=== PATIENT | female | born 1955 | race African-American/Black ===

== ENCOUNTER 2016-02-27 14:43 | Inpatient (IN) | payer OTHER ==
[~2016-02-27] VITALS: Ht 154.9 cm; Wt 73.9 kg
--- NOTE | ~2016-02-27 | EKG ---
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 : 1955 Requested By: Doni Luque Order Number: [id number] MD: Raheem Buckley Measurements Intervals [place] Rate: 57 P: 46 AR: 142 QRS: 40 QRSD: 104 T: -27 QT: 418 QTc: 407 Interpretive Statements Sinus rhythm Multiple premature complexes, supraven Abnormal R-wave progression, early transition Borderline T abnormalities, diffuse leads Compared to ECG 02/04/2016 17:42:54 T-wave abnormality now present Electronically Signed On 03-10-2016 14:19:23 AIRLINE STATION AGENT by Raheem Buckley [email or web address] <ELECTRONICALLY SIGNED> By: Raheem Buckley MD, FACC 03/10/16 1419 1244 1244 Raheem Buckley MD, [facility] /EPI
--- NOTE | ~2016-02-27 | HC ---
[facility] [place] [address] CONSULTATION Name: TIFFANIE TIMMONS Room #: 431-P ADM IN M.R.#: [id number] Admission: 02/27/16 Attend Phys: Chester [facility] Discharge: Date of : 51 Report #: [id number] THIS REPORT FOR: //name// CC: Chester Meza DATE OF SERVICE: 02/28/2016 ATTENDING PHYSICIAN: Chester Meza MD REASON FOR CONSULTATION: Sinus tract right groin. HISTORY OF PRESENT ILLNESS: A 60-year-old -[place] woman well known to me from multiple previous hospitalizations at [facility] in followup in the office. The patient apparently developed a draining sinus tract in the right groin with foul smelling material that she initially responded to Bactrim but subsequently failed to further improve. The patient is known to have this chronic sinus tract in the groin for many years. She was previously evaluated on multiple occasions by vascular surgeons. She did have previous fistulogram that revealed the sinus tract communicated with a graft. It appears that the graft was removed at some point in time. The patient ____ only drainage but no systemic symptoms. No nausea, vomiting, diarrhea, genitourinary symptoms. PAST MEDICAL HISTORY: Hypertension, history of abdominal aortic aneurysm graft infection, left BKA, chronic right sinus tract that appears to have been well controlled for many years and started draining again 4 weeks ago, history of ureteral stricture requiring stent placement by Dr. Frances, gastroesophageal reflux, hypertension, diabetes mellitus. DRUG ALLERGIES: None listed. MEDICATIONS: The patient on treatment with metformin 500 p.o. b.i.d., clopidogrel bisulfate 75 mg p.o. daily, vancomycin 750 mg IV every 12 hours, losartan 100 mg daily, polyethylene glycol 17 grams daily, nebivolol 10 mg daily, gabapentin 600 mg p.o. t.i.d., hydrochlorothiazide 25 mg p.o. daily, morphine controlled release 90 mg b.i.d., famotidine 10 mg b.i.d., fentanyl 50 mcg q.3 hours p.r.n., ondansetron 4 mg q.6 hours p.r.n., Zosyn 3.375 grams IV every 8 hours. 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 No tobacco. No alcohol. REVIEW OF SYSTEMS: As above. PHYSICAL EXAMINATION: GENERAL: Chronically ill-appearing woman, not toxic looking, no distress, [address] [address] CONSULTATION Name: TIFFANIE TIMMONS GRAHAM Room #: 431-[facility] IN [facility].#: [id number] Admission: 02/27/16 Attend Phys: Chester Meza MD, FAAF Discharge: Date of : 51 Report #: [id number] afebrile since admission. VITAL SIGNS: Temperature 98, pulse 77, respirations 17, BP 148/64, height 5 feet 1 inch, weight 163 pounds. HEENMT: Within range. NECK: Supple, no thyromegaly. LUNGS: Clear to auscultation. HEART: S1, S2. No gallop or murmur. ABDOMEN: Surgical scar, soft, no masses or megaly. EXTREMITIES: The right groin shows a chronic scarring and a small sinus tract no drainage on the dressing. She is scheduled for CT scanning of ____ fistulogram. She has left BKA. NEUROLOGIC: Grossly within normal limits. LABORATORY DATA: Sodium 135, potassium 4.2, BUN 11, creatinine 1.1, glucose 130, lactic acid 2.2, albumin 3.1. WBC 9.4, hemoglobin 12.1, platelets 410,000. White blood cell count differential revealed 63% neutrophils, 25% lymphocytes. Urinalysis revealed this to be cloudy with a specific gravity of 1.015, pH 6, 2+ blood. The microscopic exam revealed there is 3+ leukocyte esterase. Microscopic exam revealed a few wbc's in clumps, 11 to 20 rbc's per HPF, and moderate bacteria. Yeasts are present as well. MICROBIOLOGY DATA: Blood cultures were obtained in an afebrile patient with normal white blood cell count ____ will be negative. The urine culture is pending. The groin culture revealed no growth so far and the Gram stain revealed few wbc's, many rbc's, few squamous epithelial cells, moderate gram-negative rods, many gram-positive cocci. Note is made that the patient had previous Enterococcus faecalis and Tova albicans in urine. The groin culture and aortic graft revealed Streptococcus constellatus before. ASSESSMENT: 1. Recurrent right groin sinus tract in a patient with previous graft infection with Streptococcus constellatus status post graft removal. 2. Diabetes mellitus. 3. Single kidney, history of renal cell carcinoma. 4. Diabetes mellitus. SUGGESTIONS: Recommend Zosyn and vancomycin for coverage of previously isolated organisms. The patient has no symptoms of acute urinary tract infection, consequently will not ____ urinary tract, but we will keep that in mind since the patient had previous ureteral stent placement by Dr. Daniels. Dr. Meza, thank you for requesting my suggestions. <ELECTRONICALLY SIGNED> By: Ian Elkins MD 02/29/16 1149 1041 2115 Ian Elkins MD /heather
--- NOTE | ~2016-02-27 | H ---
[facility] [place] [address] HISTORY AND PHYSICAL Name: TIFFANIE TIMMONS Room #: 431-P ADM IN M.R.#: [id number] Admission: 02/27/16 Attend Phys: Chester Meza MD, FAAF Discharge: Date of : 51 Report #: [id number] THIS REPORT FOR: //name// CC: Augustus Ta MD DATE OF SERVICE: 02/27/2016 CHIEF COMPLAINT: Draining fistula, right groin. HISTORY OF PRESENT ILLNESS: The patient is a 60-year-old black female well known to me. She has a history of peripheral vascular disease and has had multiple surgical interventions to help her with that. She had an AAA graft with 3 bypasses and graft material removed from an infection with MRSA in 2002. Again, similar episode with graft with infection removed in 2011. She now presents with about 1 month long evolution of fistulous tract in the right groin, initially responded to Bactrim about Thanksgiving and then recurred, now worsened with a foul odor. She is evaluated in my office and then subsequently in the Emergency Department at [facility]. Cultures were obtained. Initial labs were also obtained. She started on IV Zosyn and further studies have been arranged to better evaluate her fistulous tract. She did have a pelvic ultrasound done immediately prior to her Emergency Department evaluation that showed a draining sinus tract with radiologist recommended further radiographic studies to better characterize this. PAST MEDICAL HISTORY: Peripheral vascular disease, left BKA, AAA graft with 3 bypasses graft material removed from infection with MRSA in 2002, dysfunctional graft infection removed in 2011, hypertension, gastroesophageal reflux, type 2 diabetes, tubal ligation in the at [facility], hysterectomy in 2002 at [facility], cholecystectomy in 1989, Raymundo ureteral stents with multiple changes about every [address] Augustus Daniels, urologist, renal cell carcinoma with nephrectomy. CURRENT MEDICATIONS: Hydrochlorothiazide 25 mg 1 p.o. q.a.m., Neurontin 600 mg p.o. t.i.d., Avapro 80 mg p.o. daily, Bystolic 10 mg p.o. daily, MiraLax 17 grams p.o. daily p.r.n., Percocet 7.5/325 mg one p.o. q. 4 hours p.r.n. pain, Glucophage 500 mg b.i.d. with meals, MS Contin 100 mg p.o. b.i.d., Zantac 150 mg b.i.d., and Plavix 75 mg p.o. q.a.m. ALLERGIES: LORAZEPAM. FAMILY HISTORY: Negative for colon cancer. 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 [address] [address] HISTORY AND PHYSICAL Name: TIFFANIE TIMMONS GRAHAM Room #: 431-P ADM IN M.R.#: [id number] Admission: 02/27/16 Attend Phys: Chester Meza MD, FAAF Discharge: Date of : 51 Report #: [id number] REVIEW OF SYSTEMS: GENERAL: She has felt poorly, feels malaise and fatigue. She has pelvic pain, flank pain and leg pain. EYES: No visual changes. ENT: No problems with hearing, swallow, taste or smell. CV: No chest pain or palpitations. RESPIRATORY: No difficulty breathing. GASTROINTESTINAL: No abdominal pain. She has some chronic pelvic pain, malaise and a draining right groin fistulous tract. GENITOURINARY: Single kidney with history of renal cell carcinoma and nephrectomy, now with single kidney. DERMATOLOGIC: Fistulous tract, right groin. PSYCHIATRIC: Frustrated, not depressed. NEUROLOGIC: No paresis, paralysis or paresthesias. Remainder of system review is negative. OBJECTIVE: VITAL SIGNS: Afebrile, stable. Appears fatigued. HEENT: Pupils equal, round and reactive to light and accommodation. Extraocular muscles intact. Pharynx unremarkable. NECK: Supple. CARDIOVASCULAR: S1, S2. CHEST: Clear. ABDOMEN: Soft, nontender. He has fistulous tract about 1 cm about the right groin crease. NEUROLOGIC: No focal neurologic deficits. LABORATORY DATA: Labs are drawn. CBC unable to be obtained. Creatinine 1.1. Cultures are taken from wound as well as blood. ASSESSMENT: Infected right groin with fistulous tract from prior peripheral vascular surgeries, chronic pelvic pain, single kidney with history of renal cell carcinoma, type 2 diabetes, hypertension, BKA status. PLAN: Admit to hospital, IV antibiotics. Follow cultures. Further imaging studies in a.m. We will hold Glucophage following her procedures and hold Plavix with chance of surgical or procedural intervention soon. <ELECTRONICALLY SIGNED> By: Chester Meza MD, FAAFP, FACEP 03/02/16 1413 0100 0150 Chester Meza MD, FAAFP, FACEP /nt
[~2016-02-27 14:43] MED LIST: AMITRIPTYLINE H25 M2 PO; AMOXICILLIN875 MG PO; AMOXIL 875 MG875 M1 PO; ANTIVERT25 MG PO; AUGMENTIN 875875 M1 PO; AVAPRO300 MG PO; BACTRIM DS TAB1 EACH PO; BENICAR20 MG PO; BENICAR40 MG PO; BLOOD GLUCOSE1 EAC5; BYSTOLIC 5 MG5 M1 PO; BYSTOLIC10 MG PO; BYSTOLIC20 MG PO; CEFTIN 250 MG250 MG PO; CIPRO500 MG/5 M PO; CIPROFLOXACIN500 M1 PO; CIPROFLOXACIN500 M3 OR; CLONIDINE PO; COUMADIN 4 MG TA4 M1 PO; DITROPAN XL5 M1 PO; EFFEXOR75 MG PO; ELAVIL PO; ENDOCET 7.5-321 EACH PO; ENOXAPARIN60 MG/0.6 IJ; FAMOTIDINE 40 M40 M1 PO; FERRO-TIME325 MG PO; FIORICET 50-321 EACH PO; GLUCOPHAGE500 MG PO; HUMULINR100; HYDROCHLOROTHIA25 M1 PO; HYDROCODON-ACE1 EAC5 PO; KEFLEX500 MG PO; LASIX 20 MG TAB20 MG PO; MACROBID 100 M100 M1 PO; METFORMIN 500500 MG PO; METROGEL-VAGINA70 GM VG; MIRALAX255 GM PO; MS CONTIN100 MG PO; NAPROSYN500 MG PO; NEURONTIN 300300 M1 PO; NEURONTIN600 MG PO; NEXIUM40 MG PO; NORCO 5-325 TA1 EACH PO; NORFLEX100 MG PO; NORVASC10 MG PO; OXYBUTYNIN 5 MG5 M1 PO; OXYCONTIN60 MG PO; PERCOCET 10-321 EACH PO; PERCOCET 5-3251 EACH PO; PERCOCET 7.5-31 EACH PO; PHENERGAN 25 MG25 M1; PHENERGAN 25 MG25 M1 PO; PHENERGAN 25 MG25 MG PO; PLAVIX 75 MG TA75 MG PO; PRILOSEC PO; PYRIDIUM200 MG PO; RANITIDINE; REGLAN 10 MG TA10 MG PO; RESTORIL15 MG PO; SENNA PLUS PO; TEKTURNA300 MG PO; VANCOCIN 250 M250 M1 PO; VANCOMYCIN100 MG/M1 PO; VESICARE 5 MG TA5 MG PO; VITAMIN D2000 UNIT PO; VITAMIN D31000 UNI2 PO; ZANTAC 150MG T150 M1 PO; ZANTAC 150MG T150 MG PO; ZANTAC300 MG PO; ZOFRAN ODT4 MG PO; ZOFRAN4 MG PO
[2016-02-27 14:44] VITALS: BP 193/90
[2016-02-27 16:13] LABS: URINE BILIRUBIN NEGATIVE (Negative); URINE BLOOD 2+ (Negative); URINE COLOR YELLOW; URINE GLUCOSE-RANDOM* NEGATIVE (Negative); URINE KETONES NEGATIVE (Negative); URINE NITRITE NEGATIVE (Negative); URINE PROTEIN (DIPSTICK) NEGATIVE (Negative); URINE SPECIFIC GRAVITY 1.015 (1.003-1.035); URINE UROBILINOGEN 0.2 E.U./dl (0.2-1.0)
[2016-02-27 16:21] LABS: CASTS None Seen /LPF (None Seen); SQUAMOUS >10 Many /LPF (0-3); URINE WBC >25 Many /HPF (0-5)
[2016-02-27 16:22] LABS: CRYSTALS None Seen /LPF (None Seen); WBC CLUMPS Few (None Seen); YEAST Present (None Seen)
[2016-02-27 16:26] LABS: ANION GAP 8 mmol/L (7-16); BUN 11 mg/dL (7-18); CALCIUM 9.7 mg/dL (8.5-10.1); CHLORIDE 99 mmol/L (98-107); CO2 28 mmol/L (21-32); CREATININE 1.1 mg/dL (0.6-1.3); GLUCOSE 121 mg/dL (70-99); POTASSIUM 4.2 mmol/L (3.5-5.1); SODIUM 135 mmol/L (136-145)
[2016-02-27 16:32] LABS: ALBUMIN 3.1 g/dL (3.4-5.0); ALKALINE PHOSPHATASE 120 U/L (46-116); DIRECT BILIRUBIN < 0.1 mg/dL (<0.1-0.3); SGOT 23 U/L (15-37); SGPT 17 U/L (30-65); TOTAL BILIRUBIN 0.3 mg/dL (<0.1-1.0)
[2016-02-27 18:01] VITALS: BP 168/85
[2016-02-27 18:30] VITALS: BP 157/78
[2016-02-27 19:37] LABS: BASOPHILS 0.9 % (0.0-2.0); EOSINOPHILS 1.3 % (0.0-3.0); HEMATOCRIT 36.6 % (37.0-47.0); HEMOGLOBIN 12.1 gm/dL (12.0-15.0); LYMPHOCYTES 25.4 % (24.0-44.0); MANUAL DIFF NO; MCH 28.9 pg (26.0-34.0); MCHC 33.2 % (28.0-37.0); MCV 87.1 fL (80.0-100.0); MONOCYTES 8.5 % (1.0-8.0); PLATELET COUNT 410 thou/uL (150-400); POLYS 63.9 % (36.0-66.0); RDW 14.7 % (10.5-14.5); WBC 9.4 thou/uL (4.0-11.0)
[2016-02-27 20:00] VITALS: BP 170/74
[2016-02-28 04:13] VITALS: BP 142/59
[2016-02-28 07:23] VITALS: BP 148/64
[2016-02-28 16:16] VITALS: BP 164/73
[2016-02-28 20:00] VITALS: BP 150/65
[2016-02-29 04:00] VITALS: BP 162/77
[2016-02-29 08:47] VITALS: BP 167/67
[2016-02-29 15:02] VITALS: BP 179/80
[2016-02-29 20:00] VITALS: BP 149/74
[2016-03-01 04:00] VITALS: BP 169/86
[2016-03-01 07:29] VITALS: BP 195/76
[2016-03-01 15:42] VITALS: BP 183/77
[2016-03-01 15:51] VITALS: BP 183/77
[2016-03-01 17:10] VITALS: BP 180/85
[2016-03-01 20:00] VITALS: BP 170/68
[2016-03-02 03:01] VITALS: BP 177/80
[2016-03-02 04:00] VITALS: BP 171/90
[2016-03-02 05:41] LABS: BASOPHILS 0.7 % (0.0-2.0); EOSINOPHILS 2.7 % (0.0-3.0); HEMATOCRIT 30.2 % (37.0-47.0); HEMOGLOBIN 10.3 gm/dL (12.0-15.0); LYMPHOCYTES 29.7 % (24.0-44.0); MCH 29.6 pg (26.0-34.0); MCV 87.1 fL (80.0-100.0); MONOCYTES 7.4 % (1.0-8.0); PLATELET COUNT 305 thou/uL (150-400); POLYS 59.5 % (36.0-66.0); RBC 3.46 mil/uL (4.20-5.00); RDW 14.5 % (10.5-14.5)
[2016-03-02 05:46] LABS: MANUAL DIFF NO
[2016-03-02 05:56] LABS: ALBUMIN 2.5 g/dL (3.4-5.0); CALCIUM 8.4 mg/dL (8.5-10.1); POTASSIUM 3.3 mmol/L (3.5-5.1); TOTAL BILIRUBIN 0.2 mg/dL (<0.1-1.0); TOTAL PROTEIN 6.5 g/dL (6.4-8.2)
[2016-03-02 08:29] VITALS: BP 160/73
[2016-03-02 17:23] VITALS: BP 203/80
[2016-03-03 04:00] VITALS: BP 204/80
[2016-03-03 07:40] VITALS: BP 179/64
[2016-03-03 08:10] VITALS: BP 182/72
[2016-03-03 12:03] VITALS: BP 181/82
[2016-03-03 17:16] VITALS: BP 132/67
[2016-03-03 20:00] VITALS: BP 190/68
[2016-03-04] VITALS: BP 190/59
[2016-03-04 04:00] VITALS: BP 178/70
[2016-03-04 15:50] VITALS: BP 178/85
[2016-03-04 19:19] VITALS: BP 188/79
[2016-03-05 03:09] VITALS: BP 149/73
[2016-03-05 05:51] LABS: ALBUMIN 2.7 g/dL (3.4-5.0); CALCIUM 9.2 mg/dL (8.5-10.1); CREATININE 1.1 mg/dL (0.6-1.3); POTASSIUM 3.5 mmol/L (3.5-5.1); TOTAL BILIRUBIN 0.3 mg/dL (<0.1-1.0); TOTAL PROTEIN 7.3 g/dL (6.4-8.2)
[2016-03-05 06:28] LABS: ABSOLUTE NEUTROPHILS 7.3 thou/uL (1.4-8.2); BASOPHILS 0.8 % (0.0-2.0); EOSINOPHILS 2.5 % (0.0-3.0); HEMATOCRIT 32.3 % (37.0-47.0); HEMOGLOBIN 10.9 gm/dL (12.0-15.0); LYMPHOCYTES 26.1 % (24.0-44.0); MCHC 33.8 % (28.0-37.0); MCV 85.7 fL (80.0-100.0); PLATELET COUNT 351 thou/uL (150-400); POLYS 64.6 % (36.0-66.0); RBC 3.77 mil/uL (4.20-5.00); RDW 14.8 % (10.5-14.5); WBC 11.3 thou/uL (4.0-11.0)
[2016-03-05 06:29] LABS: MANUAL DIFF NO
[2016-03-05 07:43] VITALS: BP 154/74
[2016-03-05 15:35] VITALS: BP 136/64
[2016-03-05 21:00] VITALS: BP 150/56
[2016-03-06 04:30] VITALS: BP 140/77
[2016-03-06 07:55] VITALS: BP 101/48
[2016-03-06 14:06] VITALS: BP 112/56
[2016-03-06 19:58] VITALS: BP 127/61
[2016-03-07 04:11] VITALS: BP 158/69
[2016-03-07 08:30] VITALS: BP 97/42
[2016-03-07 11:52] VITALS: BP 115/54
[2016-03-07 17:19] VITALS: BP 156/68
[2016-03-07 20:00] VITALS: BP 133/58
[2016-03-07 23:42] LABS: URINE BILIRUBIN NEGATIVE (Negative); URINE BLOOD 3+ (Negative); URINE COLOR YELLOW; URINE GLUCOSE-RANDOM* NEGATIVE (Negative); URINE KETONES NEGATIVE (Negative); URINE LEUKOCYTES-REFLEX 2+ (Negative); URINE PROTEIN (DIPSTICK) NEGATIVE (Negative); URINE UROBILINOGEN 0.2 E.U./dl (0.2-1.0)
[2016-03-08 00:04] LABS: CASTS None Seen /LPF (None Seen); CRYSTALS None Seen /LPF (None Seen); SQUAMOUS >10 Many /LPF (0-3); URINE RBC 3-10 Few /HPF (0-2)
[2016-03-08 04:00] VITALS: BP 140/62
[2016-03-08 07:43] VITALS: BP 118/68
[2016-03-08 11:53] VITALS: BP 183/77
[2016-03-08 14:34] VITALS: BP 183/77
[2016-03-08 16:05] VITALS: BP 136/59
[2016-03-08 20:00] VITALS: BP 166/74
[2016-03-09 04:08] VITALS: BP 132/69
[2016-03-09 08:15] VITALS: BP 126/50
[2016-03-09 11:42] VITALS: BP 112/55
[2016-03-09 15:58] VITALS: BP 126/63
[2016-03-09 20:00] VITALS: BP 129/44
[2016-03-10 04:00] VITALS: BP 131/58
[2016-03-10 08:13] VITALS: BP 99/53
[2016-03-10 09:52] LABS: CALCIUM 9.1 mg/dL (8.5-10.1); CREATININE 1.2 mg/dL (0.6-1.3); POTASSIUM 3.6 mmol/L (3.5-5.1)
[2016-03-10 10:05] LABS: ABSOLUTE NEUTROPHILS 9.4 thou/uL (1.4-8.2); BASOPHILS 0.6 % (0.0-2.0); EOSINOPHILS 2.5 % (0.0-3.0); HEMATOCRIT 33.1 % (37.0-47.0); HEMOGLOBIN 10.7 gm/dL (12.0-15.0); MANUAL DIFF NO; MCH 28.6 pg (26.0-34.0); MCHC 32.4 % (28.0-37.0); MCV 88.3 fL (80.0-100.0); MONOCYTES 6.8 % (1.0-8.0); POLYS 61.1 % (36.0-66.0); RBC 3.74 mil/uL (4.20-5.00); RDW 15.1 % (10.5-14.5); WBC 15.4 thou/uL (4.0-11.0)
[2016-03-10 10:29] LABS: PLATELET COUNT 333 thou/uL (150-400)
[2016-03-10 12:06] VITALS: BP 111/66
[2016-03-10 17:23] VITALS: BP 136/70
[2016-03-10 20:00] VITALS: BP 159/84
[2016-03-11 04:00] VITALS: BP 134/76
[2016-03-11 07:28] VITALS: BP 141/69
[2016-03-11 15:49] VITALS: BP 143/63
[2016-03-11 20:00] VITALS: BP 165/75
[2016-03-12 04:00] VITALS: BP 96/47
[2016-03-12 07:14] VITALS: BP 107/53
[2016-03-12] MEDS ORDERED: DIFLUCAN200 MG PO (10:18)
[2016-03-12] MEDS ORDERED: AUGMENTIN 875-1 EACH PO (10:18)
[2016-03-12 11:57] VITALS: BP 183/77
== END 2016-03-12 15:47 | disposition home health service (06) | DRG 907 ==
LOC: ER 14:43 → 4E 16:54 → EROBS 16:54 → 4E 18:00
PROVIDERS: Family Medicine; Internal Medicine; Physician Assistant
PROC: 02H633Z Insertion of Infusion Device into Right Atrium, Percutaneous Approach (ICD-10-PCS; principal; 2016-02-28)
PROC: 0JDL0ZZ Extraction of Right Upper Leg Subcutaneous Tissue and Fascia, Open Approach (ICD-10-PCS; 2016-03-12)
DX: T81.83XA Persistent postprocedural fistula, initial encounter (principal); A41.9 Sepsis, unspecified organism; N39.0 Urinary tract infection, site not specified; L02.214 Cutaneous abscess of groin; E44.1 Mild protein-calorie malnutrition; L08.9 Local infection of the skin and subcutaneous tissue, unspecified; R10.2 Pelvic and perineal pain; S31.103A Unspecified open wound of abdominal wall, right lower quadrant without penetration into peritoneal cavity, initial encounter; E11.51 Type 2 diabetes mellitus with diabetic peripheral angiopathy without gangrene; G89.29 Other chronic pain; I10 Essential (primary) hypertension; K21.9 Gastro-esophageal reflux disease without esophagitis; E11.40 Type 2 diabetes mellitus with diabetic neuropathy, unspecified; I71.4 Abdominal aortic aneurysm, without rupture; Z89.512 Acquired absence of left leg below knee; Z85.528 Personal history of other malignant neoplasm of kidney; Z90.710 Acquired absence of both cervix and uterus; Z86.14 Personal history of Methicillin resistant Staphylococcus aureus infection
CPT/HCPCS: 10084

== ENCOUNTER 2016-06-16 18:32 | Emergency (ER) | payer OTHER ==
[~2016-06-16] VITALS: Ht 154.9 cm; Wt 75.3 kg
[~2016-06-16 18:32] MED LIST changes: +AUGMENTIN 875-1 EACH PO; +DIFLUCAN200 MG PO
== END 2016-06-16 20:59 | disposition home or self-care (01) ==
LOC: ER 18:32
DX: I10 Essential (primary) hypertension (principal); Z86.718 Personal history of other venous thrombosis and embolism; E11.9 Type 2 diabetes mellitus without complications; Z90.710 Acquired absence of both cervix and uterus; Z96.0 Presence of urogenital implants; F17.210 Nicotine dependence, cigarettes, uncomplicated

== ENCOUNTER 2016-08-17 05:25 | Emergency (ER) | payer OTHER ==
[~2016-08-17] VITALS: Ht 157.5 cm; Wt 73.5 kg
[2016-08-17 06:08] LABS: URINE BILIRUBIN NEGATIVE (Negative); URINE BLOOD 2+ (Negative); URINE COLOR YELLOW; URINE GLUCOSE-RANDOM* NEGATIVE (Negative); URINE KETONES NEGATIVE (Negative); URINE LEUKOCYTES-REFLEX 3+ (Negative); URINE PROTEIN (DIPSTICK) 1+ (Negative)
[2016-08-17 06:19] LABS: SQUAMOUS >10 Many /LPF (0-3)
[2016-08-17 06:20] LABS: URINE RBC >20 Many /HPF (0-2); URINE WBC-REFLEX >25 Many /HPF (0-5)
[2016-08-17 06:21] LABS: CASTS None Seen /LPF (None Seen); CRYSTALS None Seen /LPF (None Seen)
[2016-08-17 07:01] LABS: ABSOLUTE NEUTROPHILS 7.1 thou/uL (1.4-8.2); BASOPHILS 0.9 % (0.0-2.0); EOSINOPHILS 2.3 % (0.0-3.0); HEMATOCRIT 36.3 % (37.0-47.0); HEMOGLOBIN 12.1 gm/dL (12.0-15.0); LYMPHOCYTES 28.7 % (24.0-44.0); MCH 29.6 pg (26.0-34.0); MCHC 33.5 g/dL (28.0-37.0); MCV 88.4 fL (80.0-100.0); MONOCYTES 9.1 % (1.0-8.0); PLATELET COUNT 416 thou/uL (150-400); RDW 14.6 % (10.5-14.5); WBC 12.1 thou/uL (4.0-11.0)
[2016-08-17 07:03] LABS: MANUAL DIFF NO
[2016-08-17 07:11] LABS: ANION GAP 9 mmol/L (7-16); BUN 13 mg/dL (7-18); CALCIUM 9.8 mg/dL (8.5-10.1); CHLORIDE 101 mmol/L (98-107); CO2 27 mmol/L (21-32); CREATININE 1.1 mg/dL (0.6-1.0); GLUCOSE 173 mg/dL (74-106); POTASSIUM 4.1 mmol/L (3.5-5.1); SODIUM 137 mmol/L (136-145)
[2016-08-17 07:15] LABS: ALBUMIN 3.2 g/dL (3.4-5.0); ALKALINE PHOSPHATASE 97 U/L (46-116); DIRECT BILIRUBIN < 0.1 mg/dL (<0.1-0.3); SGOT 19 U/L (15-37); SGPT 25 U/L (30-65); TOTAL BILIRUBIN 0.2 mg/dL (<0.1-1.0); TOTAL PROTEIN 7.8 g/dL (6.4-8.2)
[2016-08-17] MEDS ORDERED: BACTRIM DS TAB1 EACH PO (08:16)
== END 2016-08-17 08:43 | disposition home or self-care (01) ==
LOC: ER 05:25
PROVIDERS: Emergency Medicine
DX: N39.0 Urinary tract infection, site not specified (principal); I10 Essential (primary) hypertension; E11.9 Type 2 diabetes mellitus without complications; Z86.718 Personal history of other venous thrombosis and embolism; Z90.710 Acquired absence of both cervix and uterus; Z98.890 Other specified postprocedural states; Z87.891 Personal history of nicotine dependence

== ENCOUNTER 2016-11-09 04:40 | Inpatient (IN) | payer OTHER ==
[2016-11-09] VITALS (8 sets, daily range): BP systolic 105–180; BP diastolic 59–95
[~2016-11-09] VITALS: Ht 154.9 cm; Wt 75.7 kg
--- NOTE | ~2016-11-09 | EKG ---
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 : 1955 Requested By: Doni Luque Order Number: [id number] MD: Alcides Patton Measurements Intervals [place] Rate: 99 P: 45 IL: 151 QRS: 43 QRSD: 101 T: -43 QT: 383 QTc: 492 Interpretive Statements Sinus rhythm Nonspecific T abnormalities, inferior leads Borderline prolonged QT interval Compared to ECG 03/09/2016 12:44:27 No significant change Electronically Signed On 11-09-2016 12:45:41 CDT by Alcides Patton [email or web address] <ELECTRONICALLY SIGNED> By: Alcides Patton MD 11/09/16 1245 0758 0758 Alcides Patton MD /MARCOS
--- NOTE | ~2016-11-09 | HC ---
[facility] [place] [address] CONSULTATION Name: TIFFANIE TIMMONS Room #: 211-P ADM IN M.R.#: [id number] Admission: 11/09/16 Attend Phys: Doni Luque DO Discharge: Date of : 51 Report #: [id number] THIS REPORT FOR: //name// CC: Doni Meza DATE OF SERVICE: 11/09/2016 INDICATION: Hypertensive urgency and chest pain. HISTORY OF PRESENT ILLNESS: This is a 61-year-old female presenting with uncontrolled hypertension. She checks her blood pressure at home regularly and noted an elevation. She presented to the ER for an evaluation and was treated with IV labetalol and hydralazine. The patient developed a discomfort across the chest area, comes and goes. There were no alleviating or aggravating factors. She denies any symptoms of shortness of breath, diaphoresis, or congestion. Presently, she remained stable with no further episodes of chest discomfort. She is followed by Dr. Hu for history of peripheral vascular disease. PAST MEDICAL HISTORY: Peripheral vascular disease with history of aortobifemoral bypass. Left BKA. Abdominal aortic aneurysm with graft and removal for infection, diabetes mellitus, hypertension, renal cell carcinoma with nephrectomy, chronic pain syndrome. Cardiac catheterization in 2006, revealed normal coronary arteries. ALLERGIES: None. MEDICATIONS: Include MS Contin, gabapentin, metformin, Percocet, valsartan 300 mg daily, Bystolic 10 mg daily, Plavix 75 mg daily, hydrochlorothiazide 25 mg daily, MiraLax, and ranitidine 300 mg twice a day. ALLERGIES: None. SOCIAL HISTORY: Denies tobacco use. FAMILY HISTORY: Negative for premature CAD. REVIEW OF SYSTEMS: A full 10-point review of systems performed. Only the pertinent positives and negatives are described in the HPI. PHYSICAL EXAMINATION: VITAL SIGNS: Blood pressure is 168/80, heart rate is 90 beats per minute. GENERAL APPEARANCE: This is an overweight female, in no acute distress. HEAD AND EYES: Normocephalic. Sclerae are anicteric. ENT: Oral mucosa moist. [facility] [address] [address] CONSULTATION Name: TIFFANIE TIMMONS [facility] Room #: 211-P [facility] IN M.R.#: [id number] Admission: 11/09/16 Attend Phys: Doni Luque DO Discharge: Date of : 53 Report #: [id number] NECK: Supple. LUNGS: Clear to auscultation. CARDIAC: Regular rate and rhythm, S1, S2 positive. ABDOMEN: Protuberant, soft, nontender. EXTREMITIES: Left BKA. No cyanosis, trace edema in the right lower extremity. NEUROLOGIC: Alert and oriented x3. SKIN: Intact. ECG reveals sinus rhythm, nonspecific T-wave abnormalities. LABORATORY VALUES: Sodium is 135, creatinine is 1.1. Troponin is negative. White count is 8.1, hemoglobin is 11.9. ASSESSMENT AND PLAN: 1. Chest pain, atypical, the initial troponin and EKG are unremarkable. We will defer to Dr. Hu in regards to stress testing as in or outpatient. 2. Hypertensive urgency, the blood pressure remains elevated. We will increase Bystolic to 20 mg daily. Consider changing diuretic as well. 3. Peripheral vascular disease, stable at this time. 4. Diabetes mellitus, continue with medications and fingersticks. 5. Chronic kidney disease. 6. Chronic pain syndrome, continue with meds. Thank you for allowing me to participate in the care of your patient. <ELECTRONICALLY SIGNED> By: Alcides Patton MD 11/10/16 0836 1049 1615 Alcides Patton MD /nt
--- NOTE | ~2016-11-09 | H ---
[facility] [place] [address] HISTORY AND PHYSICAL Name: TIFFANIE TIMMONS GRAHAM Room #: 211-P [facility] IN M.R.#: [id number] Admission: 11/09/16 Attend Phys: Doni Luque DO Discharge: 11/10/16 Date of : 51 Report #: [id number] THIS REPORT FOR: //name// CC: Doni Hu MD [facility] DATE OF SERVICE: 11/09/2016 HISTORY OF PRESENT ILLNESS: This 61-year-old black female was admitted to the Emergency Room with history that her blood pressure accelerated on the day before admission. She says her blood pressure, which she checks regularly, is usually in the 130s. However, yesterday, her pressure was 180/90 several times. She took an additional clonidine and additional hydrochlorothiazide, but the pressure did not improve. Furthermore, yesterday she was having episodes of left-sided chest pain, not pleuritic, with mild nausea and mild dyspnea. She came to the Emergency Room because she was concerned about her blood pressure and she responded to IV labetalol and hydralazine and sublingual nitroglycerin. Currently, she is in no pain. Patient has chronic pain in her legs and is on MS Contin and Percocet regularly. She denies increased pain, increased stress, recent infection, any use of caffeine or alcohol, any decongestants or antihistamines. 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 She has had hypertension, left BKA with subsequent phantom pain, reflex sympathetic dystrophy in her legs, abdominal aortic aneurysm graft with graft material removed due to MRSA infection in 2002, dysfunctional graft infection removed in 2011, gastroesophageal reflux, bilateral tubal ligation, hysterectomy, cholecystectomy, renal cell carcinoma with nephrectomy, multiple ureteral stents. MEDICATIONS: On admission, MS Contin 100 mg b.i.d., gabapentin 600 mg t.i.d., metformin 500 mg b.i.d., Percocet 10/325 one q. 4-6h. p.r.n. pain, valsartan 300 mg daily, Bystolic 10 mg daily, clopidogrel 75 mg daily, HCTZ 25 mg daily, MiraLax 1 capful daily as needed, ranitidine 300 mg b.i.d. ALLERGIES: None. SOCIAL HISTORY: She lives alone in an apartment. She does not drive. Her children bring her food. She is able to transfer herself to her power scooter. She can walk a few feet with her prosthesis. She saw Dr. Meza [address] Hu regularly. She had a stress test approximately a year ago, she thinks. [address] [address] HISTORY AND PHYSICAL Name: TIFFANIE TIMMONS [facility] Room #: 211-P DIS IN M.R.#: [id number] Admission: 11/09/16 Attend Phys: Doni Luque, DO Discharge: 11/10/16 Date of : 51 Report #: [id number] REVIEW OF SYSTEMS: She denies fever, chills, sweats, cough, diarrhea, dysuria, but has been slightly constipated. PHYSICAL EXAMINATION: VITAL SIGNS: Blood pressure initially 180/95, currently 154/69, pulse 100, respiration 16, temperature afebrile. HEAD: No rash or trauma. EARS, NOSE AND THROAT: No definite lesions. EYES: No icterus. NECK: Supple without definite bruits. LUNGS: Clear. Cough is dry. HEART: Rhythm regular, without significant murmur. ABDOMEN: Soft and nontender. There is no rash to suggest shingles. EXTREMITIES: The right lower extremity has trace edema and is cool. The left BKA stump grossly looks normal. NEUROLOGIC: She is alert and well oriented and seems to be an excellent historian. No lateralized deficits. LABORATORY DATA: White count 8000, hemoglobin 11.9. Sodium 135, potassium 3.5, CO2 27, BUN 10, creatinine 1.1, estimated GFR 61. Blood sugar 224. Calcium 9.4. Troponin negative. Chest x-ray is negative. EKG shows right bundle-branch block without acute ST changes. IMPRESSION: 1. Accelerated hypertension. 2. Chest pain. 3. History of significant vascular disease. 4. 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 5. Phantom limb pain. 6. Reflex sympathetic dystrophy. 7. Hypertension. 8. Chronic kidney disease, stage II. PLAN: Emergency Room for patient should be a full admit. She is on telemetry. We will check serial enzymes. Increase clonidine. Ask Cardiology to see further recommendations on increasing BP meds. Consider renal artery Doppler. Stress test in some time. <ELECTRONICALLY SIGNED> By: Doni Luque DO 11/11/16 0747 0731 0841 Doni Luque, /nt
--- NOTE | ~2016-11-09 | EKG ---
[address] 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 : 1955 Requested By: Yanni Cary Order Number: [id number] MD: Alcides Patton Measurements Intervals [place] Rate: 96 P: 29 [place]: 155 QRS: 14 QRSD: 126 T: -18 QT: 364 QTc: 460 Interpretive Statements Sinus rhythm Right bundle branch block Compared to ECG 03/09/2016 12:44:27 Right bundle-branch block now present T-wave abnormality no longer present Electronically Signed On 11-09-2016 12:44:59 CDT by Alcides Patton [email or web address] <ELECTRONICALLY SIGNED> By: Alcides Patton MD 11/09/16 1244 0445 0445 Alcides Patton MD /MARCOS
--- NOTE | ~2016-11-09 | D ---
[facility] [place] [address] DISCHARGE SUMMARY Name: TIFFANIE TIMMONS GRAHAM Room #: 211-P [facility] IN M.R.#: [id number] Admission: 11/09/16 Attend Phys: Doni Luque DO Discharge: 11/10/16 Date of : 51 Report #: [id number] THIS REPORT FOR: //name// CC: ESTEBAN Meza DATE OF SERVICE: 11/10/2016 DATE OF ADMISSION: 11/09/2016 DATE OF DISCHARGE: 11/10/2016 HOSPITAL COURSE: This 61-year-old black female was admitted through the Emergency Room with accelerated hypertension and chest pain. The patient's blood pressure had been stable at home, but on the evening before admission, it aleks to 180 and then 200 and with increased clonidine and hydrochlorothiazide, it did not come down. Furthermore, she was having left-sided chest pain with mild nausea and mild dyspnea, but no pleurisy or cough. No fever or chills. PAST MEDICAL HISTORY: Includes severe vasculopathy, diabetes, left BKA with phantom pain and reflex sympathetic dystrophy, hypertension, renal cell carcinoma, bilateral3 ureteral stents, and infected graft materials following AAA graft. HOSPITAL COURSE: Initial physical revealed an overweight, but pleasant black female. BP 180/95. She was afebrile. NECK: Supple, without bruits. LUNGS: Clear. ENT: Essentially negative. HEART: Rhythm regular without murmur or gallop. ABDOMEN: Soft and nontender. There is no rash to suggest shingles. EXTREMITIES: Revealed left BKA stump was healed. There was trace edema in the right leg. Right foot was cool. She had sensory deficit in that foot. There were no lateralized neurologic deficits. LABORATORY DATA: Cardiac enzymes negative. White count 8000, hemoglobin 11.9 g, sodium 135, potassium 3.5, CO2 27, BUN 10, creatinine 1.1, estimated GFR 61. Blood sugar 224, calcium 9.4. Chest x-ray negative. EKG showed right bundle branch block. The patient was admitted and placed on increased dosages of Bystolic after seen by Dr. Patton of Cardiology. She had no further chest pain. Serial enzymes were negative. Final hemoglobin was 10.7 g, sodium 137, potassium low at 3.3, CO2 28, BUN 11, creatinine 1.2, estimated GFR at 55. Blood sugar 212. On 11/09/2016, she was afebrile, felt well, had no further pain and was stable [address] [address] DISCHARGE SUMMARY Name: TIFFANIE TIMMONS GRAHAM Room #: 211-P [facility] IN [facility].#: [id number] Admission: 11/09/16 Attend Phys: Doni Luque DO Discharge: 11/10/16 Date of : 51 Report #: [id number] for discharge home. DISCHARGE MEDICATIONS: Bystolic 20 mg daily, MiraLax 1 capful daily, clopidogrel 75 mg daily, morphine, MS Contin 100 mg b.i.d., metformin 500 mg b.i.d., HCTZ 25 mg daily, gabapentin 600 mg t.i.d., oxycodone/acetaminophen 10/325 one q. 6 h. p.r.n. pain, ranitidine 300 mg b.i.d., irbesartan 300 mg daily. She will be on a diabetic, low-salt diet. See Dr. Meza in 2 weeks for followup potassium level. She will monitor her blood pressure at home and contact him if it is unstable. FINAL DIAGNOSES: 1. Accelerated hypertension. 2. Musculoskeletal chest pain. 3. Chronic kidney disease stage 3. 4. Chronic pain from reflex sympathetic dystrophy and phantom limb pain. 5. 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 6. Hypertension. 7. Gastroesophageal reflux disease without esophagitis. 8. Hypokalemia. <ELECTRONICALLY SIGNED> By: Doni Luque DO 11/12/16 0939 [id number] 0925 Doni Luque DO /nt
[2016-11-09 05:11] LABS: ABSOLUTE NEUTROPHILS 6.1 thou/uL (1.4-8.2); BASOPHILS 0.5 % (0.0-2.0); EOSINOPHILS 0.4 % (0.0-3.0); HEMATOCRIT 35.8 % (37.0-47.0); HEMOGLOBIN 11.9 gm/dL (12.0-15.0); LYMPHOCYTES 14.9 % (24.0-44.0); MCH 29.6 pg (26.0-34.0); MCHC 33.3 g/dL (28.0-37.0); MCV 88.9 fL (80.0-100.0); MONOCYTES 8.7 % (1.0-8.0); PLATELET COUNT 388 thou/uL (150-400); POLYS 75.5 % (36.0-66.0); RBC 4.03 mil/uL (4.20-5.00); RDW 14.7 % (10.5-14.5); WBC 8.1 thou/uL (4.0-11.0)
[2016-11-09 05:15] LABS: MANUAL DIFF NO
[2016-11-09 05:16] LABS: ANION GAP 11 mmol/L (7-16); BUN 10 mg/dL (7-18); CALCIUM 9.4 mg/dL (8.5-10.1); CHLORIDE 97 mmol/L (98-107); CO2 27 mmol/L (21-32); CREATININE 1.1 mg/dL (0.6-1.0); GLUCOSE 224 mg/dL (74-106); POTASSIUM 3.5 mmol/L (3.5-5.1); SODIUM 135 mmol/L (136-145)
[2016-11-09 05:21] LABS: APTT 24.2 Seconds (24.5-32.8); PROTIME 10.4 Seconds (9.3-11.4)
[2016-11-09 05:25] LABS: TROPONIN-I < 0.04 ng/mL (<0.04-0.07)
[2016-11-10 00:45] VITALS: BP 114/57
[2016-11-10 03:48] LABS: ABSOLUTE NEUTROPHILS 5.4 thou/uL (1.4-8.2); BASOPHILS 0.4 % (0.0-2.0); EOSINOPHILS 1.2 % (0.0-3.0); HEMATOCRIT 31.6 % (37.0-47.0); HEMOGLOBIN 10.7 gm/dL (12.0-15.0); MCHC 33.9 g/dL (28.0-37.0); MCV 88.4 fL (80.0-100.0); MONOCYTES 8.8 % (1.0-8.0); PLATELET COUNT 345 thou/uL (150-400); POLYS 63.6 % (36.0-66.0); RBC 3.58 mil/uL (4.20-5.00); RDW 15.2 % (10.5-14.5); WBC 8.6 thou/uL (4.0-11.0)
[2016-11-10 03:59] LABS: CALCIUM 9.1 mg/dL (8.5-10.1); CREATININE 1.2 mg/dL (0.6-1.0); POTASSIUM 3.3 mmol/L (3.5-5.1)
[2016-11-10 04:30] VITALS: BP 97/61
[2016-11-10 05:59] LABS: MANUAL DIFF NO
[2016-11-10 07:55] VITALS: BP 117/75
[2016-11-10] MEDS ORDERED: BYSTOLIC10 MG PO (08:40)
[2016-11-10 10:46] VITALS: BP 143/83
[2016-11-10 10:50] VITALS: BP 143/83
== END 2016-11-10 12:49 | disposition home or self-care (01) | DRG 305 ==
LOC: ER 04:40 → EROBS 05:35 → 2N 06:35
PROVIDERS: Emergency Medicine; Internal Medicine
DX: I16.0 Hypertensive urgency (principal); G90.50 Complex regional pain syndrome I, unspecified; E11.22 Type 2 diabetes mellitus with diabetic chronic kidney disease; R07.89 Other chest pain; I12.9 Hypertensive chronic kidney disease with stage 1 through stage 4 chronic kidney disease, or unspecified chronic kidney disease; E11.51 Type 2 diabetes mellitus with diabetic peripheral angiopathy without gangrene; K21.9 Gastro-esophageal reflux disease without esophagitis; G89.4 Chronic pain syndrome; N18.3 Chronic kidney disease, stage 3 (moderate); E87.6 Hypokalemia; E11.40 Type 2 diabetes mellitus with diabetic neuropathy, unspecified; Z90.710 Acquired absence of both cervix and uterus; Z86.718 Personal history of other venous thrombosis and embolism; Z87.891 Personal history of nicotine dependence; Z89.512 Acquired absence of left leg below knee; Z90.5 Acquired absence of kidney; Z85.528 Personal history of other malignant neoplasm of kidney
CPT/HCPCS: 10081

== ENCOUNTER 2017-03-22 19:30 | Emergency (ER) | payer OTHER ==
[~2017-03-22] VITALS: Ht 154.9 cm; Wt 68.0 kg
[2017-03-22] MEDS ORDERED: PROTONIX 20 MG20 M1 PO (19:34)
[2017-03-22 20:55] LABS: URINE BILIRUBIN NEGATIVE (Negative); URINE BLOOD 2+ (Negative); URINE CLARITY CLEAR; URINE COLOR YELLOW; URINE GLUCOSE-RANDOM* NEGATIVE (Negative); URINE KETONES NEGATIVE (Negative); URINE NITRITE-REFLEX NEGATIVE (Negative); URINE PROTEIN (DIPSTICK) 1+ (Negative); URINE SPECIFIC GRAVITY 1.015 (1.005-1.035); URINE UROBILINOGEN 0.2 E.U./dl (0.2-1.0)
[2017-03-22 20:56] LABS: URINE LEUKOCYTES-REFLEX 2+ (Negative)
[2017-03-22 21:18] LABS: SQUAMOUS >10 Many /LPF (0-3)
[2017-03-22 21:19] LABS: CASTS None Seen /LPF (None Seen); CRYSTALS None Seen /LPF (None Seen); URINE WBC-REFLEX >25 Many /HPF (0-5); WBC CLUMPS Rare (None Seen)
[2017-03-22 21:27] LABS: ABSOLUTE NEUTROPHILS 9.5 thou/uL (1.4-8.2); BASOPHILS 0.7 % (0.0-2.0); HEMATOCRIT 33.5 % (37.0-47.0); HEMOGLOBIN 11.5 gm/dL (12.0-15.0); LYMPHOCYTES 21.5 % (24.0-44.0); MCHC 34.2 g/dL (28.0-37.0); MCV 87.9 fL (80.0-100.0); MONOCYTES 5.7 % (1.0-8.0); PLATELET COUNT 436 thou/uL (150-400); POLYS 71.1 % (36.0-66.0); RBC 3.81 mil/uL (4.20-5.00); RDW 14.1 % (10.5-14.5); WBC 13.3 thou/uL (4.0-11.0)
[2017-03-22 21:36] LABS: ANION GAP 8 mmol/L (7-16); BUN 11 mg/dL (7-18); CALCIUM 9.3 mg/dL (8.5-10.1); CHLORIDE 100 mmol/L (98-107); CO2 30 mmol/L (21-32); CREATININE 1.1 mg/dL (0.6-1.0); GLUCOSE 157 mg/dL (74-106); POTASSIUM 3.6 mmol/L (3.5-5.1); SODIUM 138 mmol/L (136-145)
[2017-03-22 21:44] LABS: DIRECT BILIRUBIN < 0.1 mg/dL (<0.1-0.3); SGOT 21 U/L (15-37); SGPT 26 U/L (30-65); TOTAL BILIRUBIN 0.3 mg/dL (<0.1-1.0); TOTAL PROTEIN 7.4 g/dL (6.4-8.2); TROPONIN-I < 0.04 ng/mL (<0.06)
[2017-03-22] MEDS ORDERED: NITROFURANTOIN100 MG PO (22:55)
[2017-03-22] MEDS ORDERED: ZOFRAN ODT4 MG PO (22:55)
[2017-03-22 23:18] VITALS: BP 107/50
== END 2017-03-22 23:19 | disposition home or self-care (01) ==
LOC: ER 19:30
PROVIDERS: Nurse Practitioner Family
DX: K52.9 Noninfective gastroenteritis and colitis, unspecified (principal); N39.0 Urinary tract infection, site not specified; I10 Essential (primary) hypertension; I73.9 Peripheral vascular disease, unspecified; E11.40 Type 2 diabetes mellitus with diabetic neuropathy, unspecified; Z86.14 Personal history of Methicillin resistant Staphylococcus aureus infection; Z90.710 Acquired absence of both cervix and uterus; Z86.718 Personal history of other venous thrombosis and embolism; Z96.0 Presence of urogenital implants; Z87.891 Personal history of nicotine dependence

== ENCOUNTER → 2017-04-17 | Outpatient (CLI) | payer OTHER ==
[~2017-04-17] MED LIST changes: +AMOXICILLIN 50500 MG PO; +COZAAR 25 MG TA25 M1 PO; +NITROFURANTOIN100 MG PO; +NORVASC5 MG PO; +PROTONIX 20 MG20 M1 PO
== END ==
LOC: ULTRA 13:54
DX: R10.2 Pelvic and perineal pain (principal); R63.4 Abnormal weight loss; Z90.710 Acquired absence of both cervix and uterus; Z90.5 Acquired absence of kidney; Z96.0 Presence of urogenital implants

== ENCOUNTER 2017-09-17 01:54 | Inpatient (IN) | payer OTHER ==
[~2017-09-17] VITALS: Ht 154.9 cm; Wt 68.9 kg
--- NOTE | ~2017-09-17 | EKG ---
[address] [place] [address] ELECTROCARDIOGRAM REPORT Name: TIFFANIE TIMMONS Room #: 458-P ADM IN M.R.#: [id number] Admission: 09/17/17 Attend Phys: Doni Luque DO Discharge: Date of : 51 Report #: [id number] THIS REPORT FOR: //name// [facility] ED Test Date: 2017-09-17 Test Time: 02:59:06 Pat Name: TIFFANIE TIMMONS Department: Room: Gender: F Tonguer: jere : 1955 Requested By: Stewart Connelly Order Number: [id number] MD: Raheem Buckley Measurements Intervals [place] Rate: 85 P: 44 CO: 144 QRS: 57 QRSD: 98 T: 18 QT: 382 QTc: 455 Interpretive Statements Sinus rhythm Normal tracing Compared to ECG 11/09/2016 07:58:48 T-wave abnormality no longer present Electronically Signed On 09-17-2017 7:38:35 CDT by Raheem Buckley [email or web address] <ELECTRONICALLY SIGNED> By: Raheem Buckley MD, [facility] 09/17/17 0738 0259 8 Raheem Buckley MD, [facility] /EPI
--- NOTE | ~2017-09-17 | H ---
[facility] [place] [address] HISTORY AND PHYSICAL Name: TIFFANIE TIMMONS Room #: 458-P ADM IN M.R.#: [id number] Admission: 09/17/17 Attend Phys: Doni Luque DO Discharge: Date of : 51 Report #: [id number] THIS REPORT FOR: //name// CC: Doni Meza MD DATE OF SERVICE: 09/17/2017 LOCATION: Room 458. HISTORY OF PRESENT ILLNESS: This 62-year-old black female was admitted to the Emergency Room with 3-day history of progressive nausea and left upper quadrant abdominal pain. The patient states she was doing well; however, she suddenly developed nausea and abdominal discomfort, with mild burning on urination. Symptoms worsened and she had her daughter bring her to the Emergency Room today. She denied fever, chills, sweats, rash, chest pain, cough, sore throat, dyspnea, diarrhea, headache, dysphagia or confusion. PAST MEDICAL HISTORY: DM type 2 with neuropathy and severe peripheral vascular disease, chronic indwelling right ureteral stent for hydronephrosis, left nephrectomy for carcinoma, chronic pelvic pain for which she has been on narcotic analgesics for years, hypertension, multiple vascular interventions, DVT of the left leg and of the right arm, vitamin D deficiency, right leg neuropathy, iliofemoral bypass, aortofemoral bypass, left to right fem-fem bypass, axillary to femoral bypass with thrombectomy, infected fem-fem bypass with excision and debridement, removal of infected aortic graft in 2011, complete abdominal hysterectomy, colonoscopy in April of this year, left BKA in 2007. Was hospitalized [address] [facility] for urogenital candidiasis following an enterococcal UTI. CT angiography of the abdomen and pelvis on 07/10/2017 showed no definite occlusive vascular disease. EGD was negative during that admission on 07/07/2017. MEDICATIONS ON ADMISSION: MS Contin 100 mg b.i.d., gabapentin 600 mg t.i.d., metformin 500 mg b.i.d., pantoprazole 40 mg daily, clopidogrel 75 mg daily, Bystolic 5 mg b.i.d., HCTZ 25 mg daily, LOSARTAN 25 mg daily, Percocet 10/325 one twice a day, MiraLax 1 capful daily, vitamin D3 1000 units daily, Compazine 10 mg q. 6 h p.r.n. nausea, and clonidine 0.1 mg q. 6 h p.r.n. blood pressure greater than 160. ALLERGIES: None. REVIEW OF SYSTEMS: Lives at home alone. Her daughter and other friends drive her to the store for supplies. She no longer drives. She denies confusion, dysphagia, vomiting, back pain, chest pain. [facility] [address] [place] [address] HISTORY AND PHYSICAL Name: TIFFANIE TIMMONS GRAHAM Room #: 458-P [facility] IN M.R.#: [id number] Admission: 09/17/17 Attend Phys: Doni Luque DO Discharge: Date of : 51 Report #: [id number] PHYSICAL EXAMINATION: GENERAL: Currently, a pleasant, overweight black female in no distress who recognized me immediately. VITAL SIGNS: BP 145/64, pulse 78, respirations 18, temperature 36.9. HEAD: No rash or trauma. EARS, NOSE AND THROAT: No lesions. Mucosa slightly dry. Has her own teeth, in fair condition. NECK: Supple, without adenopathy or bruits. LUNGS: Clear. Decreased breath sounds in the right base. Cough is dry. HEART: Rhythm regular, without murmur. ABDOMEN: Soft and obese with some tenderness in left upper quadrant. No flank tenderness. Bowel sounds are normal. No rebound or guarding. EXTREMITIES: Left BKA stump is clean and dry. Right lower leg shows no cellulitis or swelling. NEUROLOGIC: She is alert and well oriented at present. She has significant sensory deficit in her right foot. LABORATORY DATA: Lactic acid is high at 2.4, blood sugar 190. Urinalysis shows marked pyuria. White count 12,400 with a left shift, hemoglobin 11.1 grams, platelets 529,000. Sodium 136, potassium 4.1, CO2 of 27, BUN 11, creatinine 1.2, estimated GFR 55, calcium 9.6. Liver enzymes normal. Troponin negative. Albumin slightly low at 3.2. Lipase normal. CAT scan of the abdomen and pelvis shows no adenopathy, aortic occlusion below the renal artery level, right axillary femoral bypass graft that looks occluded, right ureteral stent with residual hydronephrosis, but no acute process. IMPRESSION: 1. Acute nausea, vomiting, abdominal pain, dysuria, elevated lactic acid, probable sepsis. 2. Rule out diabetic gastroenteropathy, currently denies constipation or diarrhea. 3. Diabetes mellitus type 2 with neuropathy. 4. Peripheral arterial vascular disease. 5. Chronic pain syndrome, on chronic narcotics. 6. Hypertension. 7. Indwelling right ureteral stent. PLAN: Continue IV fluids. Follow lactic acid levels. Broad spectrum antibiotics covering urinary tract pathogens especially. Follow up lab. The patient states she is going on vacation to an [employer] in [place] in 3 days and she hopes to go. [facility] [address] [facility] [place] [address] HISTORY AND PHYSICAL Name: TIFFANIE TIMMONS Room #: 458-P ADM IN M.R.#: [id number] Admission: 09/17/17 Attend Phys: Doni Luque DO Discharge: Date of : 51 Report #: [id number] PROGNOSIS: Guarded. Dr. Conner of Urology has seen the patient and does not think she has an acute occlusive event in her ureter. Await culture reports. <ELECTRONICALLY SIGNED> By: Doni Luque DO 09/18/17 0757 [id number] 1530 Doni Luque DO /nt
--- NOTE | ~2017-09-17 | D ---
[facility] [place] [address] DISCHARGE SUMMARY Name: TIFFANIE TIMMONS Room #: 458-P [facility] IN M.R.#: [id number] Admission: 09/17/17 Attend Phys: Doni Luque DO Discharge: 09/18/17 Date of : 51 Report #: [id number] THIS REPORT FOR: //name// CC: Augustus Meza MD DATE OF SERVICE: 09/18/2017 HISTORY OF PRESENT ILLNESS: This 62-year-old black female was admitted through the Emergency Room with a 3-day history of nausea and abdominal pain. Her past history included multiple comorbidities including DM type 2 with neuropathy, left BKA, severe peripheral arterial vascular disease, chronic pelvic pain for which she has been on narcotic analgesics for years, hypertension, constipation, DVT of the left leg and the right arm, vitamin D deficiency, aortofemoral bypass, iliofemoral bypass, left to right fem-fem bypass, axillary to femoral bypass with thrombectomy, infected fem-fem bypass with excision and debridement, removal of infected aortic graft in 2011, complete abdominal hysterectomy, hospitalization 2 months ago for enterococcal UTI followed by urogenital candidiasis at which time, she had normal EGD. HOSPITAL COURSE: PHYSICAL EXAMINATION: GENERAL: Initial physical revealed an uncomfortable and nauseated black female. VITAL SIGNS: Essentially stable. HEAD AND NECK: Revealed dry mucosa. LUNGS: With decreased breath sounds in the right base. ABDOMEN: Soft with tenderness in left upper quadrant. HEART: Rhythm was regular without significant murmur. EXTREMITIES: Revealed left BKA stump was clean. Right leg showed no evidence of cellulitis, had significant sensory deficit. Lactic acid was high at 2.4. Blood sugar 190. Urinalysis showed marked pyuria. White count 12,400 with a left shift, hemoglobin 11.1, platelets 529,000. Sodium 136, potassium 4.1, CO2 27, BUN 11, creatinine 1.2, estimated GFR 55, calcium 9.6. Liver enzymes normal. Albumin slightly low at 3.2. Lipase normal. CAT scan of the abdomen and pelvis showed aortic occlusion below the renal artery. No significant adenopathy, right axillary femoral bypass graft looks occluded. Right ureteral stent with residual hydronephrosis. The patient was admitted on broad spectrum IV antibiotics, was seen in consult by Dr. Conner of Urology. He felt she had left-sided abdominal pain and right-sided hydronephrosis from the chronically occluded stent. CAT scan of the left kidney showed cortical thinning without hydronephrosis or calculus. The patient did improve. Vital signs stabilized. Her final blood pressure was 136/60, [facility] [address] [place] [address] DISCHARGE SUMMARY Name: TIFFANIE TIMMONS GRAHAM Room #: 458-P [facility] IN M.R.#: [id number] Admission: 09/17/17 Attend Phys: Doni Luque DO Discharge: 09/18/17 Date of : 51 Report #: [id number] afebrile, eating well, no further nausea. Urine culture is still pending. On the afternoon of 09/18/2017, she was clinically stable for discharge home on amoxicillin 250 mg daily for another 5 days pending final urine culture report, MiraLax 1 capful daily, clopidogrel 75 mg daily, MS Contin 100 mg b.i.d., metformin 500 mg b.i.d., hydrochlorothiazide 25 mg daily, gabapentin 600 mg t.i.d., oxycodone/acetaminophen 10/325 one q. 6h. p.r.n. pain (she takes two daily), Bystolic 10 mg take 2 tablets daily, pantoprazole 40 mg daily, Zofran 4 mg t.i.d., amlodipine 5 mg daily, losartan 25 mg daily. She is traveling to [place], [place] for a vacation in 2 days, for which she seems stable. She will contact Dr. Meza in 1-2 weeks for followup. I will dictate an addendum when urine came out when urine culture is finalized. FINAL DIAGNOSES: 1. Acute sepsis. 2. Pyelonephritis. 3. Diabetes mellitus type 2 with neuropathy. 4. Peripheral arterial vascular disease. 5. Chronic kidney disease stage 3. 6. Hyperlactacidemia. 7. Chronic anemia. 8. Chronic pain. 9. Mild protein-calorie malnutrition. 10. Obstructive right ureteral stent with hydronephrosis. Addendum; urine culture showed klebsiella resistent to amoxicillin but sensitive to augmentin and cefuroxime and cipro. If not improved, may need one of those antibiotics <ELECTRONICALLY SIGNED> By: Doni Luque DO 09/22/17 0722 1732 1819 Doni Luque DO /nt
[~2017-09-17 01:54] MED LIST changes: -AMOXICILLIN 50500 MG PO; -COZAAR 25 MG TA25 M1 PO; -NORVASC5 MG PO
[2017-09-17 01:58] VITALS: BP 156/66
[2017-09-17] MEDS ORDERED: COZAAR 25 MG TA25 M1 PO (02:32)
[2017-09-17] MEDS ORDERED: NORVASC5 MG PO (02:32)
[2017-09-17 02:55] LABS: URINE BILIRUBIN NEGATIVE (Negative); URINE BLOOD 2+ (Negative); URINE CLARITY CLEAR; URINE COLOR YELLOW; URINE GLUCOSE-RANDOM* NEGATIVE (Negative); URINE KETONES NEGATIVE (Negative); URINE NITRITE-REFLEX NEGATIVE (Negative); URINE PROTEIN (DIPSTICK) NEGATIVE (Negative); URINE UROBILINOGEN 0.2 E.U./dl (0.2-1.0)
[2017-09-17 02:55] LABS: BASOPHILS 0.2 % (0.0-2.0); EOSINOPHILS 1.4 % (0.0-3.0); HEMATOCRIT 33.8 % (37.0-47.0); HEMOGLOBIN 11.1 gm/dL (12.0-15.0); LYMPHOCYTES 18.6 % (24.0-44.0); MCH 28.6 pg (26.0-34.0); MCHC 32.7 g/dL (28.0-37.0); MCV 87.3 fL (80.0-100.0); MONOCYTES 6.9 % (1.0-8.0); PLATELET COUNT 529 thou/uL (150-400); POLYS 72.9 % (36.0-66.0); RBC 3.88 mil/uL (4.20-5.00); RDW 16.1 % (10.5-14.5); WBC 12.4 thou/uL (4.0-11.0)
[2017-09-17 02:59] LABS: URINE LEUKOCYTES-REFLEX 3+ (Negative)
[2017-09-17 03:10] LABS: ALBUMIN 3.2 g/dL (3.4-5.0); ANION GAP 11 mmol/L (7-16); BUN 11 mg/dL (7-18); CALCIUM 9.6 mg/dL (8.5-10.1); CHLORIDE 98 mmol/L (98-107); CO2 27 mmol/L (21-32); CREATININE 1.2 mg/dL (0.6-1.0); GLUCOSE 219 mg/dL (74-106); LIPASE 147 U/L (73-393); POTASSIUM 4.1 mmol/L (3.5-5.1); SGOT 32 U/L (15-37); SGPT 42 U/L (30-65); SODIUM 136 mmol/L (136-145); TOTAL BILIRUBIN 0.2 mg/dL (<0.1-1.0); TOTAL PROTEIN 8.8 g/dL (6.4-8.2); TROPONIN-I <0.06 ng/mL (<0.06)
[2017-09-17 03:16] LABS: SQUAMOUS >10 Many /LPF (0-3); YEAST-REFLEX Present (None Seen)
[2017-09-17 03:17] LABS: URINE RBC 3-10 Few /HPF (0-2)
[2017-09-17 03:18] LABS: CASTS None Seen /LPF (None Seen); CRYSTALS None Seen /LPF (None Seen)
[2017-09-17 03:19] LABS: BACTERIA-REFLEX 1-9 Few /HPF (None Seen)
[2017-09-17 05:57] VITALS: BP 141/58
[2017-09-17 06:24] VITALS: BP 145/64
[2017-09-17 16:40] VITALS: BP 119/46
[2017-09-17 20:24] VITALS: BP 128/65
[2017-09-18 00:23] VITALS: BP 119/53
[2017-09-18 03:34] VITALS: BP 137/53
[2017-09-18 06:01] LABS: ABSOLUTE NEUTROPHILS 7.1 thou/uL (1.4-8.2); BASOPHILS 0.7 % (0.0-2.0); EOSINOPHILS 2.2 % (0.0-3.0); HEMOGLOBIN 10.1 gm/dL (12.0-15.0); LYMPHOCYTES 19.6 % (24.0-44.0); MCH 29.1 pg (26.0-34.0); MCHC 33.5 g/dL (28.0-37.0); MCV 86.9 fL (80.0-100.0); MONOCYTES 7.4 % (1.0-8.0); PLATELET COUNT 460 thou/uL (150-400); POLYS 70.1 % (36.0-66.0); RBC 3.45 mil/uL (4.20-5.00); RDW 16.1 % (10.5-14.5); WBC 10.1 thou/uL (4.0-11.0)
[2017-09-18 06:18] LABS: ALBUMIN 2.7 g/dL (3.4-5.0); CREATININE 1.2 mg/dL (0.6-1.0); POTASSIUM 4.6 mmol/L (3.5-5.1); TOTAL BILIRUBIN 0.3 mg/dL (<0.1-1.0)
[2017-09-18 07:25] VITALS: BP 136/60
[2017-09-18] MEDS ORDERED: AMOXICILLIN 50500 MG PO (07:51)
[2017-09-18 13:29] VITALS: BP 136/60
[2017-09-18 14:26] VITALS: BP 136/60
== END 2017-09-18 14:55 | disposition home or self-care (01) | DRG 872 ==
LOC: ER 01:54 → EROBS 04:56 → 4W 04:56 → ENTRNSPT 09-18 14:39 → EDTRNSPTSTS 09-18 14:44 → 4W 09-18 14:55
PROVIDERS: Emergency Medicine; Internal Medicine
DX: A41.9 Sepsis, unspecified organism (principal); E44.0 Moderate protein-calorie malnutrition; N12 Tubulo-interstitial nephritis, not specified as acute or chronic; N13.1 Hydronephrosis with ureteral stricture, not elsewhere classified; K21.9 Gastro-esophageal reflux disease without esophagitis; E11.40 Type 2 diabetes mellitus with diabetic neuropathy, unspecified; E11.22 Type 2 diabetes mellitus with diabetic chronic kidney disease; E11.51 Type 2 diabetes mellitus with diabetic peripheral angiopathy without gangrene; N18.3 Chronic kidney disease, stage 3 (moderate); I12.9 Hypertensive chronic kidney disease with stage 1 through stage 4 chronic kidney disease, or unspecified chronic kidney disease; R10.2 Pelvic and perineal pain; D64.9 Anemia, unspecified; G89.4 Chronic pain syndrome; Z68.28 Body mass index [BMI] 28.0-28.9, adult; Z87.891 Personal history of nicotine dependence; Z90.710 Acquired absence of both cervix and uterus; Z89.512 Acquired absence of left leg below knee; Z86.718 Personal history of other venous thrombosis and embolism; Z79.899 Other long term (current) drug therapy
CPT/HCPCS: 10047

== ENCOUNTER 2018-05-17 16:07 | Inpatient (IN) | payer OTHER ==
[~2018-05-17] VITALS: Ht 154.9 cm; Wt 70.5 kg
[~2018-05-17 16:07] MED LIST changes: +COZAAR 25 MG TA25 M1 PO; +NORVASC5 MG PO
[2018-05-17 16:09] VITALS: BP 105/69
[2018-05-17 16:17] VITALS: BP 158/83
[2018-05-17 16:46] LABS: URINE BILIRUBIN NEGATIVE (Negative); URINE BLOOD 3+ (Negative); URINE CLARITY CLEAR; URINE COLOR YELLOW; URINE GLUCOSE-RANDOM* NEGATIVE (Negative); URINE KETONES NEGATIVE (Negative); URINE NITRITE-REFLEX NEGATIVE (Negative); URINE PROTEIN (DIPSTICK) TRACE (Negative); URINE UROBILINOGEN 0.2 E.U./dl (0.2-1.0)
[2018-05-17 16:51] LABS: URINE LEUKOCYTES-REFLEX 3+ (Negative)
[2018-05-17 17:01] LABS: BACTERIA-REFLEX 1-9 Few /HPF (None Seen); SQUAMOUS 0-3 Few /LPF (0-3); URINE RBC >20 Many /HPF (0-2); URINE WBC-REFLEX >25 Many /HPF (0-5)
[2018-05-17 17:02] LABS: CASTS None Seen /LPF (None Seen); CRYSTALS None Seen /LPF (None Seen)
[2018-05-17 17:11] LABS: ABSOLUTE NEUTROPHILS 10.4 thou/uL (1.4-8.2); BASOPHILS 0.3 % (0.0-2.0); EOSINOPHILS 0.2 % (0.0-3.0); HEMATOCRIT 33.3 % (37.0-47.0); LYMPHOCYTES 3.9 % (24.0-44.0); MCH 27.2 pg (26.0-34.0); MCHC 32.9 g/dL (28.0-37.0); MCV 82.7 fL (80.0-100.0); PLATELET COUNT 388 thou/uL (150-400); POLYS 87.6 % (36.0-66.0); RBC 4.03 mil/uL (4.20-5.00); RDW 15.1 % (10.5-14.5); WBC 11.8 thou/uL (4.0-11.0)
[2018-05-17] MEDS ORDERED: PLAVIX 75 MG TA75 M1 PO (17:30)
[2018-05-17 17:31] LABS: CALCIUM 9.1 mg/dL (8.5-10.1); CREATININE 1.4 mg/dL (0.6-1.0); POTASSIUM 3.9 mmol/L (3.5-5.1)
[2018-05-17 17:36] LABS: ALBUMIN 3.1 g/dL (3.4-5.0); TOTAL BILIRUBIN 0.2 mg/dL (<0.1-1.0); TOTAL PROTEIN 8.6 g/dL (6.4-8.2)
--- NOTE | 2018-05-17 23:06 | NUR ---
CALLED PT'S DAUGHTER ESTEBAN TO GIVE UPDATE AND ROOM NUMBER THAT PT IS GOING TO.
[2018-05-17 23:16] VITALS: BP 105/43
[2018-05-17 23:30] VITALS: BP 142/65
--- NOTE | 2018-05-18 03:46 | NUR ---
PT ADMITTED TO ROOM 217, REMAINS A&O X4, ASSISTED PT WITH BEDPAN VOIDING YELLOW CLOUDY URINE, VSS, REQUESTING PAIN MEDS FOR GENERALIZED ALL OVER PAIN, RECEIVED ORDER FOR HOME PAIN MEDS AND GAVE PERCOCET, PT RESTING QUIETLY IN ROOM, WILL CON'T TO MONITOR PER PPOC.
[2018-05-18 05:54] VITALS: BP 146/72
[2018-05-18 08:07] VITALS: BP 144/81
--- NOTE | 2018-05-18 11:04 | NUR ---
Nutrition: assess d/t sepsis dx. Pt was drowsy during visit. States that her appetite is poor, but she was eating fine prior to admit. Wt has been stable over past 4 years, no recent weight loss. May consider nutrition supplement if PO intake does not improve. Otherwise, consider low risk.
[2018-05-18 12:08] VITALS: BP 175/88
--- NOTE | 2018-05-18 13:41 | NUR ---
PT HOMEMEDS COUNTD AND TAKE TO PHARMACY FOR LOCKUP.
[2018-05-18 16:00] VITALS: BP 165/78
--- NOTE | 2018-05-18 16:28 | NUR ---
ASSESSMENT: CM REVIEWED CHART AND MET WITH PATIENT AT THE BEDSIDE. PT WAS ADMITTED FOR UROSEPSIS. PT IS ALERT AND ORIENTED X4. PT LIVES IN AN APT AT [facility]. PT HAS HX OF L AKA AND HAS PROSTHESIS. PT REPORTS SHE USES AN ELECTRIC SCOOTER THERE FOR AMBULATION. PT REPORTS HAVING A GRAB BAR AND SHOWER CHAIR. PT REPORTS THAT SHE HAS HAD [facility] IN THE PAST FOR HH BUT DOES NOT FEEL SHE NEEDS HH AT THIS TIME. PT PLANS ON DISCHARGING BACK TO HER APT ONCE MEDICALLY STABLE. CM WILL CONTINUE TO FOLLOW TO ASSIST NEEDED.
--- NOTE | 2018-05-18 16:36 | NUR ---
IV TEAM AAKASH GUTIERREZ REPORT MIDILE IS GOOT TO USE.
--- NOTE | 2018-05-18 16:59 | EKG ---
[place] [address] [address] [facility] [place] [address] ELECTROCARDIOGRAM REPORT Name: TIFFANIE TIMMONS Room #: 217-P ADM IN M.R.#: [id number] ������������������ Admission: 05/17/18 ������������������ Attend Phys: Chester Meza MD, FAAF Discharge: ������������������ Date of : 51 Report #: [id number] ����������������������������������������������������������������� [id number] THIS REPORT FOR: //name// [facility] ED Test Date: 2018-05-17 Test Time: 16:34:51 Pat Name: TIFFANIE TIMMONS Department: Room: 217 Gender: F Fusion Operator: MADDIE : 1955 Requested By: Mariam Knight Order Number: [id number] MD: Raheem Buckley Measurements Intervals [place] Rate: 133 P: 67 CO: 133 QRS: 1 QRSD: 118 T: -9 QT: 327 QTc: 487 Interpretive Statements Sinus tachycardia Right bundle branch block Compared to ECG 09/17/2017 02:59:06 Right bundle-branch block now present heart rate has increased Electronically Signed On 05-18-2018 16:59:00 CDT by Raheem Buckley [email or web address] ��������������������������������������������� <ELECTRONICALLY SIGNED> ���������������������������������������� By: Raheem Buckley MD, [facility] ��������������������������������������������� 05/18/18 1659 1634 163 Raheem Buckley MD, [facility] /EPI
--- NOTE | 2018-05-18 17:49 | NUR ---
CONSULTED TO PLACE A PICC FOR THIS PATIENT. ORDER AND CONSENT NOTED. THE PROCEDURE WELL RISKS AND BENIFITS WERE DISCUSSED AND SHE VERBALIZED UNDERSTANDING. THE PATIENT STATED NO NURSE HAS BEEN ABLE TO PLACE AT BEDSIDE AND IR CAN NEVER OBTAIN LINE IN RIGHT ARM. IR ASKED ME TO TRY. A #4F DOUBLE LUMEN PICC WAS ATTEMPTED PER HOSPITAL POLICY AFTER A BEDSIDE TIMEOUT WAS COMPLETED. PICC WAS TRIMMED TO 43CM AND UNABLE TO ADVANCE TO THE SVC AFTER MULTIPLE ATTEMPTS- JUST THE PATIENT REPORTED. DR. HOPKINS NOTIFIED, THE TEAM IS UNABLE TO REPLACE TODAY. LINE WITHDREW TO 20CM EXTERNAL TO PLACE LINE A MIDLINE ACCESS. THE AUTOMOTIVE SERVICE PROFESSIONAL NOTIFIED THE THE MIDLINE WAS RELEASED FOR USE.
--- NOTE | 2018-05-18 19:23 | NUR ---
BEDSIDE REPORT GIVEN TO BERNARD FINN.
[2018-05-18 19:45] VITALS: BP 150/70
[2018-05-19 04:39] VITALS: BP 178/66
[2018-05-19 06:16] LABS: ABSOLUTE NEUTROPHILS 5.4 thou/uL (1.4-8.2); BASOPHILS 0.4 % (0.0-2.0); EOSINOPHILS 0.2 % (0.0-3.0); HEMATOCRIT 29.5 % (37.0-47.0); HEMOGLOBIN 9.7 gm/dL (12.0-15.0); LYMPHOCYTES 15.6 % (24.0-44.0); MCH 27.6 pg (26.0-34.0); MCV 83.4 fL (80.0-100.0); MONOCYTES 10.6 % (1.0-8.0); POLYS 73.2 % (36.0-66.0); RBC 3.53 mil/uL (4.20-5.00); RDW 15.4 % (10.5-14.5); WBC 7.4 thou/uL (4.0-11.0)
[2018-05-19 06:24] LABS: PLATELET COUNT 303 thou/uL (150-400)
[2018-05-19 06:54] LABS: ALBUMIN 2.5 g/dL (3.4-5.0); ANION GAP 10 mmol/L (7-16); BUN 10 mg/dL (7-18); CHLORIDE 102 mmol/L (98-107); CO2 26 mmol/L (21-32); CREATININE 1.1 mg/dL (0.6-1.0); GLUCOSE 121 mg/dL (74-106); SGOT 33 U/L (15-37); SGPT 29 U/L (30-65); SODIUM 138 mmol/L (136-145); TOTAL BILIRUBIN < 0.1 mg/dL (<0.1-1.0); TOTAL PROTEIN 7.2 g/dL (6.4-8.2); URIC ACID* 5.2 mg/dL (2.6-7.2)
--- NOTE | 2018-05-19 07:24 | NUR ---
ASSUMED PT CARE AT 1900 WITH NO SIGN OF DISTRESS NOTED IN PT, PT IS ALERT AND ORIENTED, PT IS LAYING IN BED, STABLE, ON ROOM AIR. SCHEDULED MEDS ADMINISTERED TO PT. PT TOLERATED PO INTAKE. VITAL SIGNS STABLE WITH THE EXCEPTION OF HIGH TEMPERATURE. THIS MORNING AM TEMP WAS 101.4. TYLENOL ADMINISTERED TO PATIENT, DENIES ANY FURTHER NEEDS AT THIST TIME.
[2018-05-19 07:34] VITALS: BP 184/86
--- NOTE | 2018-05-19 09:20 | NUR ---
PAGE DR. DEL VALLE EARLIER TO ENQUIRE ABOUT BLOOD PRESSURE, AND NAUSEA MEDICATION.WILL CONTINUE TO ASSESS.
[2018-05-19 10:59] VITALS: BP 176/78
--- NOTE | 2018-05-19 11:14 | NUR ---
PURE WICK URINE COLLECTION SYSTEM PLACED ON PT BY GLENNA FINN.
[2018-05-19 12:18] VITALS: BP 158/70
--- NOTE | 2018-05-19 15:59 | H ---
[facility] [place] [address] HISTORY AND PHYSICAL Name: TIFFANIE TIMMONS Room #: 217-P ADM IN M.R.#: [id number] Admission: 05/17/18 ������������������ Attend Phys: Chester Meza MD, FAAF Discharge: ������������������ Date of : 51 Report #: [id number] THIS REPORT FOR: //name// CC: Augustus Meza DATE OF SERVICE: 05/17/2018 CHIEF COMPLAINT: Urosepsis. HISTORY OF PRESENT ILLNESS: The patient is a 63-year-old black female well known to me as I have been her primary care doctor for many years. She was feeling well on the day of this admission until early evening when she was sitting on her scooter in the comm[place] area [place] her apartment complex when she became unresponsive. Personnel there called the ambulance and she was transferred to the Emergency Department at [facility] where she was found to be uroseptic. She was started on IV antibiotics and admitted to hospital. PAST MEDICAL HISTORY: Peripheral vascular disease, left BKA, AAA graft with 3 bypasses graft material removed from infection site with MRSA in 2002, dysfunctional graft infection was removed in 2011, hypertension, gastroesophageal reflux disease, type 2 diabetes, tubal ligation in at [facility], hysterectomy in 2002 at [facility], cholecystectomy in 1989, ureteral stents with multiple changes about every [address] Augustus Daniels, her urologist, renal cell carcinoma with nephrectomy. MEDICATIONS: Plavix 75 mg 1 p.o. daily, MiraLax 17 g p.o. daily p.r.n., Glucophage 500 mg 1 p.o. b.i.d., Protonix 20 mg 2 p.o. daily, amlodipine 5 mg p.o. daily, losartan 25 mg p.o. daily, hydrochlorothiazide 25 mg p.o. q.a.m., gabapentin 600 mg 1 p.o. t.i.d., MS Contin 100 mg p.o. b.i.d., Percocet 10/325 one p.o. q.6 hours p.r.n. pain. ALLERGIES: LORAZEPAM (DELUSIONAL). 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 Smoked cigarettes in the distant past, nondrinker, has family in [place] area. FAMILY HISTORY: Negative for colon cancer. REVIEW OF SYSTEMS: GENERAL: Feeling poorly, passed out, tachycardic, has malaise, poor appetite, fatigue, suprapubic pain, urinary tract infection with some element of pyelonephritis and hydronephrosis. CARDIOVASCULAR: No chest pain or palpitations. RESPIRATORY: No difficulty breathing. [facility] [address] [place] [address] HISTORY AND PHYSICAL Name: TIFFANIE TIMMONS [facility] Room #: 217-P ADM IN M.R.#: [id number] Admission: 05/17/18 ������������������ Attend Phys: Chester Meza MD, FAAF Discharge: ������������������ Date of : 53 Report #: [id number] GENITOURINARY: Single kidney. History of renal cell carcinoma and nephrectomy. Ureteral stents during fistulous tract, right groin, closed presently. PSYCHIATRIC: Frustrated, not depressed. NEUROLOGIC: No paresis, paralysis or paresthesias. MUSCULOSKELETAL: Left BKA with prosthesis: PHYSICAL EXAMINATION: VITAL SIGNS: Temperature is 37.1, pulse 86, respirations 18, blood pressure 175/88, pulse ox on room air is 96%. GENERAL: She is alert, but appears fatigued. HEENT: Pupils equal, round, reactive to light and accommodation. Extraocular muscles intact. Pharynx unremarkable. She has gained weight and her face looks puffy compared to her last visit, which was not, but a few weeks ago. NECK: Supple. COR: S1, S2. CHEST: Clear. ABDOMEN: Soft. She has suprapubic tenderness. No guarding or rebound. EXTREMITIES: She has left BKA. LABORATORY EVALUATION: CBC: White count is 11.8, hemoglobin 11.0, hematocrit 33.3, platelets 388,000. Machine diff, 87.6% segmented neutrophils, 3.9% lymphocytes, 8% monocytes, 0.2% eosinophils, 0.3% basophils, absolute neutrophil count 10.4, elevated. Serum chemistry: Sodium 138, potassium is 3.9, chloride 99, CO2 of 28, anion gap is 11, BUN is 18, creatinine 1.4, estimated glomerular filtration rate was 46, glucose was 235, lactic acid 2.9, calcium 9.1, total bilirubin 0.2, AST 16, ALT 19, alkaline phosphatase 129, total protein 8.6, albumin 3.1. Influenza type A and B serology were both negative. Urinalysis; clean-catch specimen, yellow clear urine, pH 6.0, specific gravity 1.010, trace protein noted, negative ketones, 3+ blood, negative nitrite, negative bilirubin, urobilinogen 0.23+, leukocyte esterase under the microscope greater than 20, many red cells per high-powered field, greater than 25 white cells per high-power field, many 0-3 squamous urinary epithelial cells, no crystals, 1-9, few bacteria, no casts and glucose was negative. Urine and blood cultures were obtained. Blood culture is negative thus far. Urine culture is pending. Chest x-ray done here in the Emergency Department was portable, no acute cardiopulmonary process detected. CT scan of the abdomen and pelvis with contrast shows: 1. 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 2. 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 Her right axillary femoral bypass graft is completely occluded. Findings are all unchanged from 08/2017. 3. Minimal distal colonic diverticulosis. 4. Prior cholecystectomy and hysterectomy. [facility] [address] [place] [address] HISTORY AND PHYSICAL Name: TIFFANIE TIMMONS [facility] Room #: 217- ADM IN ..#: [id number] Admission: 05/17/18 ������������������ Attend Phys: Chester Meza MD, JAIR Discharge: ������������������ Date of : 53 Report #: [id number] ASSESSMENT: Urosepsis, urinary tract infection, pyelonephritis, indwelling right ureteral stent, type 2 diabetes, peripheral vascular disease, left below knee amputation with prosthesis. PLAN: Admit to hospital. Continue current medications, IV Rocephin. Pending culture results. PICC line. ��������������������������������������������� <ELECTRONICALLY SIGNED> ���������������������������������������� By: Chester Meza MD, LUIZA, JUNIOR ��������������������������������������������� 05/19/18 1559 [id number] Chester Meza MD, LUIZA, JUNIOR /nt
[2018-05-19 16:02] VITALS: BP 147/75
--- NOTE | 2018-05-19 18:53 | NUR ---
WAS ABLE TO LOWER PT BP WITH HOME MEDS TODAY.
[2018-05-19 19:06] VITALS: BP 159/77
[2018-05-20 03:59] LABS: CALCIUM 8.4 mg/dL (8.5-10.1); CREATININE 1.2 mg/dL (0.6-1.0)
[2018-05-20 04:03] LABS: % SATURATION 21 % (20-39); IRON 52 ug/dL (50-170); TIBC 249 ug/dL (250-450)
[2018-05-20 04:17] LABS: POTASSIUM 2.9 mmol/L (3.5-5.1)
[2018-05-20 04:18] LABS: HEMATOCRIT 32.3 % (37.0-47.0); MCH 28.3 pg (26.0-34.0); PLATELET COUNT 325 thou/uL (150-400); RBC 3.89 mil/uL (4.20-5.00); RDW 15.7 % (10.5-14.5); WBC 4.1 thou/uL (4.0-11.0)
[2018-05-20 05:01] VITALS: BP 142/68
--- NOTE | 2018-05-20 05:26 | NUR ---
ASSUMED PT CARE AT 1900 WITH NO SIGN OF DISTRESS NOTED. PT IS ALERT AND ORIENTED. PT IS LAYING IN PT AND REQUESTING FOR PAIN MEDS. PAIN MED ADMINISTERED TO PT. SCHEDULED MEDS ADMINISTERED TO PT. PT TOLERATED PO INTAKE. DENIES ANY NEEDS AT THIS TIME. VITAL SIGNS STABLE.
[2018-05-20 06:22] LABS: ABSOLUTE NEUTROPHILS 2.3 thou/uL (1.4-8.2)
[2018-05-20 06:23] LABS: ANISOCYTOSIS 1+; LARGE PLATELETS FEW; PLATELET ESTIMATE NORMAL; POLYCHROMASIA 1+
[2018-05-20 09:09] VITALS: BP 155/64
[2018-05-20 12:02] VITALS: BP 113/58
[2018-05-20 16:31] VITALS: BP 126/56
--- NOTE | 2018-05-20 18:11 | NUR ---
STRAIGHT CATH COMPLETED FOR URINE CULTURE COLLECTION. CULTURE SENT FROM LEFT GROIN FISTULA SITE.
[2018-05-20 18:28] LABS: URINE BILIRUBIN NEGATIVE (Negative); URINE BLOOD 2+ (Negative); URINE CLARITY CLEAR; URINE COLOR YELLOW; URINE GLUCOSE-RANDOM* NEGATIVE (Negative); URINE KETONES NEGATIVE (Negative); URINE NITRITE-REFLEX NEGATIVE (Negative); URINE PROTEIN (DIPSTICK) 2+ (Negative); URINE UROBILINOGEN 0.2 E.U./dl (0.2-1.0)
[2018-05-20 18:29] LABS: URINE LEUKOCYTES-REFLEX 2+ (Negative)
[2018-05-20 18:38] LABS: CASTS None Seen /LPF (None Seen); SQUAMOUS 0-3 Few /LPF (0-3)
[2018-05-20 18:40] LABS: BACTERIA-REFLEX None Seen /HPF (None Seen); CRYSTALS None Seen /LPF (None Seen); YEAST-REFLEX Present (None Seen)
[2018-05-20 19:10] VITALS: BP 115/62
[2018-05-21 03:56] VITALS: BP 121/60
--- NOTE | 2018-05-21 05:50 | NUR ---
ASSUMED PT CARE AT 1900 WITH NO SIGN OF DISTRESS NOTED IN PT.PT IS ALERT AND ORIENTED. SCHEDULED MEDS ADMINISTERED TO PT. PT IS STABLE, VITAL SIGNS STABLE. PT IS LAYING IN BED. DENIES ANUY FURTHER NEEDS AT THIS TIME.
[2018-05-21 07:12] VITALS: BP 110/61
[2018-05-21 11:35] VITALS: BP 109/52
--- NOTE | 2018-05-21 11:53 | NUR ---
ON-GOING ASSESSMENT: CM REVIEWED CHART AND MET WITH PATIENT AT THE BEDSIDE. PT IS SLOWLY PROGRESSING TOWARDS DISCHARGE GOALS. CM DISCUSSED POSSIBLE NEED OR BENEFITS OF HH AT DISCHARGE. PT STATES SHE DOES NOT FEEL SHE NEEDS HH AND DOES NOT WANT IT AT THIS TIME. PT PLANS ON [facility]GE.
[2018-05-21 15:01] VITALS: BP 131/68
[2018-05-21 19:14] VITALS: BP 130/59
--- NOTE | 2018-05-21 20:42 | NUR ---
ASSUMED CARE AT 0700. PT A&OX4. PT ON ROOM AIR. PT GIVEN PO PAIN MEDICATION NEEDED/ORDERED. PT GETS UP X1 ASSIST AND HAS L PROTHESIS IN PLACE. SPUTUM SAMPLE SENT TO LAB ORDERED. PT HAS L UPPER ARM MIDLINE WITH 2 PORTS. RED PORT IS LEAKING ABOVE HUB. BOTH PORTS ARE VERY SLUGGISH TO FLUSH. NO BLOOD RETURN FROM EITHER PORT.
[2018-05-22 04:42] LABS: HEMATOCRIT 32.6 % (37.0-47.0); MCH 28.5 pg (26.0-34.0); MCHC 33.8 g/dL (28.0-37.0); MCV 84.3 fL (80.0-100.0); RBC 3.87 mil/uL (4.20-5.00); RDW 15.6 % (10.5-14.5); WBC 6.9 thou/uL (4.0-11.0)
[2018-05-22 05:18] LABS: CALCIUM 8.3 mg/dL (8.5-10.1); CREATININE 1.5 mg/dL (0.6-1.0); POTASSIUM 3.2 mmol/L (3.5-5.1)
[2018-05-22 05:20] VITALS: BP 117/70
--- NOTE | 2018-05-22 05:45 | NUR ---
ASSUMED PT CARE AT 1900. VSS. PT A&OX4. COMPLAINED OF PAIN IN HER LEGS AT THE START OF SHIFT, SCHEDULED PAIN MED GIVEN. ASSESSMENTS ARE DOCUMENTED. PT TRANSFERS FROM BED TO CHAIR AND TO BEDSIDE COMMODE WELL. USES CALL LIGHT APPROPRIATELY. PT IS STABLE, SHE RESTED WELL ALL NIGHT, WILL CONTINUE TO MONITOR PER POC.
[2018-05-22 09:16] VITALS: BP 129/66
[2018-05-22 12:51] VITALS: BP 117/58
[2018-05-22 16:00] VITALS: BP 123/58
--- NOTE | 2018-05-22 17:58 | NUR ---
ASSUMED CARE AT 0700, SHIFT ASSESSMNET DONE, MEDS GIVEN, VSS. REPROTED PAIN, PRN PAIN MEDS GIVEN. WILL CONTINUE TO ASSESS AND ASSIST WITH ADLs NEEDED.
[2018-05-22 19:28] VITALS: BP 124/67
[2018-05-23 04:36] VITALS: BP 120/72
[2018-05-23 04:36] LABS: HEMATOCRIT 30.4 % (37.0-47.0); HEMOGLOBIN 10.1 gm/dL (12.0-15.0); MCH 27.9 pg (26.0-34.0); MCHC 33.3 g/dL (28.0-37.0); MCV 83.7 fL (80.0-100.0); RBC 3.63 mil/uL (4.20-5.00); RDW 15.8 % (10.5-14.5); WBC 7.7 thou/uL (4.0-11.0)
[2018-05-23 04:57] LABS: CALCIUM 8.7 mg/dL (8.5-10.1); POTASSIUM 3.9 mmol/L (3.5-5.1)
--- NOTE | 2018-05-23 04:57 | NUR ---
ASSUMED PT CARE AT 1900. VSS. PT A&0X4. PT RESTED WELL ALL NIGHT SHE REQUESTED PRN PAIN MED ONLY ONCE THIS SHIFT FOR PAIN FROM HER INCISION SITE WHERE HER RENAL STENTS WAS PALCED. WHEN ASKED HOW SHE WAS DOING, SHE MENTIONED SHE HAS BEEN BETTER AND SHE WISHES HER BRONCHITIS AND COUGH WILL GO AWAY. OTHERWISE PATIENT IS STABLE, DIFLUCAN STARTED LAST NIGHT, A DOSE OF KCL WAS ALSO STARTED BY DR DEL VALLE's ORDERS. WILL CONTINUE TO MONITOR.
[2018-05-23 08:44] VITALS: BP 114/57
[2018-05-23 12:32] VITALS: BP 119/63
[2018-05-23 14:32] VITALS: BP 135/64
[2018-05-23 20:08] VITALS: BP 155/75
[2018-05-24] VITALS (7 sets, daily range): BP systolic 129–142; BP diastolic 60–71
--- NOTE | 2018-05-24 04:11 | NUR ---
ASSUMED PT CARE AT 1900. VSS. PT A&0X4. PT'S BP WAS SLIGHTLY ELEVATED AT THE START OF THE SHIFT AT 155/75 AT 0400 IT DROPPED TO 136/61 THIS AM. PT COMPLAINED OF TENDERNESS IN HER RIGHT GROIN, WHERE THE INCISION FOR INDWELLING RIGHT URETERAL STENT WAS PLACED. SITE WAS CLEANED WITH NS AND DRY GAUZE WAS PLACED ON IN. OTHERWISE, NO NEW DEVELOPMENTS, PT IS STABLE, SLEPT WELL ALL NIGHT, GOOD URINE OUTPUT. WILL CONTINUE TO MONITOR
[2018-05-24 04:21] LABS: ABSOLUTE NEUTROPHILS 3.6 thou/uL (1.4-8.2); BASOPHILS 0.7 % (0.0-2.0); EOSINOPHILS 1.2 % (0.0-3.0); HEMATOCRIT 29.6 % (37.0-47.0); LYMPHOCYTES 35.9 % (24.0-44.0); MCH 28.2 pg (26.0-34.0); MCHC 33.8 g/dL (28.0-37.0); MCV 83.6 fL (80.0-100.0); MONOCYTES 10.4 % (1.0-8.0); PLATELET COUNT 353 thou/uL (150-400); POLYS 51.8 % (36.0-66.0); RBC 3.54 mil/uL (4.20-5.00); RDW 15.9 % (10.5-14.5); WBC 6.9 thou/uL (4.0-11.0)
[2018-05-24 04:27] LABS: CALCIUM 8.9 mg/dL (8.5-10.1); CREATININE 1.8 mg/dL (0.6-1.0); POTASSIUM 4.6 mmol/L (3.5-5.1)
--- NOTE | 2018-05-24 06:37 | NUR ---
ASSUMED CARE OF PT AT 0700 ON 05/23/18. PT ALERT AND ORIENTED, VSS, C/O PAIN, MANAGED WITH PO PAIN MEDS. PT NA LOW THIS AM, ORDERS RECEIVED FOR NS @ 50ML/HR. PT C/O PAIN IN RIGHT GROIN AREA, CLEANED WITH NS, DRIED WITH GAUZE. SAMPLE OF RT GROIN AREA COLLECTED ON 05/20/18 POSITIVE FOR MRSA. PHYSISCIAN NOTIFIED, ORDERS RECEIVED, PT PUT IN CONTACT ISOLATION FOR MRSA. PT EDUCATED AND COMMUNICATES UNDERSTANDING. PT GOT UP WITH PHYSICAL THERAPY THIS SHIFT AND WALKED AROUND UNIT, TOLERATED WELL. PT UP TO BATHROOM SBA WITH PROSTHESIS, TOLERATES WELL. URINE OUTPUT ADEQUATE, PT HAD BM THIS SHIFT. PT PROGRESSING TOWARDS GOALS. DENIES CONCERNS. CONTINUING TO MONITOR.
--- NOTE | 2018-05-24 15:49 | NUR ---
ASSUMED CARE OF PT AT SHIFT CHANGE. ASSESSMENTS CHARTED. MEDS GIVEN PER MAY. PT ALERT AND ORIENTED, C/O PAIN, MANAGED WITH PO PAIN MEDS. VSS, SR-SB ON MONITOR. PT UP SBA, TOELRATING WELL. URINE OUTPUT ADEQUATE. PT C/O NAUSEA THIS SHIFT, ZOFRAN GIVEN. RELIEF OBTAINED. PT C/O COUGH, ORDERS RECEIVED FOR COUGH MED. FLUIDS CONTINUE @ 50/HR. O2 SATS WNL ON ROOM AIR, NO S/SX OF CARDIAC OR RESP DISTRESS NOTED. PT DENIES NEED FOR BREATHING TREATMENT WHEN ASKED. DENIES CONCERNS AT THIS TIME. WILL CONTINUE TO MONITOR AND FOLLOW POC.
--- NOTE | 2018-05-25 03:08 | NUR ---
ASSUMED CARE 1900. VSS. SR-SB WHEN SLEEPING. ASSESSMENT CHARTED. PT PAIN CONTROLED WITH SCHEDULED AND PRN PAIN MEDS. PT DENIES CP, SOA, DIZZINESS. PT HAS SLIGHT NAUSEA OFF AND ON REFUSED ZOLFRAN. PT MIDLINE SLUGGISH DOES NOT DRAW BACK, PT REFUSED FOR ME TO ACTIVASE OR ATTEMPT FLUSHING MORE. PT ANTICPIATED SEEING DR. DEL VALLE IN AM. WILL CONTINUE TO MONITOR AND WITH POC.
[2018-05-25 04:23] VITALS: BP 146/80
[2018-05-25 04:35] LABS: CALCIUM 9.4 mg/dL (8.5-10.1); CREATININE 1.3 mg/dL (0.6-1.0); POTASSIUM 4.9 mmol/L (3.5-5.1)
[2018-05-25 04:43] LABS: ABSOLUTE NEUTROPHILS 4.1 thou/uL (1.4-8.2); BASOPHILS 0.5 % (0.0-2.0); EOSINOPHILS 1.1 % (0.0-3.0); HEMATOCRIT 31.5 % (37.0-47.0); HEMOGLOBIN 10.5 gm/dL (12.0-15.0); LYMPHOCYTES 35.8 % (24.0-44.0); MCHC 33.3 g/dL (28.0-37.0); MCV 84.1 fL (80.0-100.0); MONOCYTES 11.7 % (1.0-8.0); PLATELET COUNT 395 thou/uL (150-400); POLYS 50.9 % (36.0-66.0); RBC 3.75 mil/uL (4.20-5.00); RDW 15.8 % (10.5-14.5); WBC 8.1 thou/uL (4.0-11.0)
[2018-05-25 07:46] VITALS: BP 170/73
--- NOTE | 2018-05-25 09:41 | HC ---
[facility] [place] [address] CONSULTATION Name: TIFFANIE TIMMONS Room #: 217-P ADM IN M.R.#: [id number] Admission: 05/17/18 ������������������ Attend Phys: Chester Meza MD, [facility] Discharge: ������������������ Date of : 53 Report #: [id number] THIS REPORT FOR: //name// CC: Chester Meza DATE OF SERVICE: 05/24/2018 INFECTIOUS DISEASE CONSULTATION REASON FOR CONSULTATION: MRSA right groin sinus tract funguria. HISTORY OF PRESENT ILLNESS: A 63-year-old -[place] woman known to me very well from multiple previous hospitalizations at [facility] and followup in the office. The patient at present time is admitted with altered mental status and febrile illness, and complained of not feeling well. The patient is known to have significant vascular disease, chronic draining sinus tracts from the right groin area secondary to possibly infected right axillofemoral bypass graft, which has been clot. At present, the patient is feeling some better. She has developed some acute kidney injury, receiving intravenous fluids. She is on treatment with Rocephin, Diflucan, and doxycycline. The patient had been doing quite well of lately despite her chronic peripheral vascular disease and she was in the past deemed not to be a surgical candidate for takedown of the infected graft. PAST MEDICAL HISTORY: 1. Diabetes mellitus. 2. Hypertension. 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 4. Peripheral vascular disease. 5. 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 She has a right axillobifemoral bypass that became infected in the past and became thrombosed. The patient is tolerating these. 6. Previous infection with different organisms, but for the most part, the most isolated organism was the peptostreptococcus and Prevotella for which, suppressed with chronic antibiotics in the past. At present, MRSA was isolated in the right groin and yeast in the urine. The urine culture from the admission time revealed no significant bacteriuria. DRUG ALLERGIES: LORAZEPAM creating delusions. MEDICATIONS: The patient is currently on treatment with doxycycline 100 mg p.o. b.i.d. started yesterday, Diflucan 100 mg p.o. daily, intravenous normal saline at 1000 mL every 24 hours, KCl supplementation, and metformin b.i.d,. which possibly should be stopped in view of azotemia. Albuterol inhalation treatments, polyethylene glycol, ondansetron, gabapentin, amlodipine, losartan, Nebivolol, Rocephin 1 gram IV daily, p.r.n. acetaminophen, and [place] [address] CONSULTATION Name: TIFFANIE TIMMONS [facility] Room #: [facility] IN M.R.#: [id number] Admission: 05/17/18 ������������������ Attend Phys: Chester Meza MD, FAAF Discharge: ������������������ Date of : 53 Report #: [id number] hydrocodone. SOCIAL HISTORY: See H and P, old record. FAMILY HISTORY: See H and P, old records. REVIEW OF SYSTEMS: As above and see H and P. PHYSICAL EXAMINATION: GENERAL: Overweight, not septic looking woman, febrile on admission, but afebrile for many days. VITAL SIGNS: Temperature 97.9, pulse 90, respirations 18, and BP 136/61. HEENMT: Within range. NECK: Supple. BREASTS: Deferred. LUNGS: Clear. HEART: S1, S2. ABDOMEN: Surgical scar, soft, no masses or megaly. The right groin does have a chronic sinus tract, not significantly changed compared to last time I saw it. EXTREMITIES: Left BKA and no palpable pulses in lower extremities. NEUROLOGIC: Grossly within normal limits. LABORATORY DATA: Her BUN went up to 2 mg/dL, down to 1.8 mg/dL today; BUN 23 mg/dL; and glucose 126. WBC 6.9, hemoglobin 10, and platelets 353,000. The urinalysis revealed a microscopic hematuria and some pyuria. Microscopic exam revealed pyuria, microscopic hematuria, and no bacteria, but yeast are present. MICROBIOLOGY DATA: Sinus tract revealed growth of MRSA, sensitive to vancomycin and tetracycline. The urine culture revealed 10-20,000 colonies of yeast. 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 Right axillary femoral bypass graft present and completely thrombosed. We suspected with Vascular Surgery that the graft was infected in the past and we thought she was not a surgical candidate. There is moderate right-sided hydronephrosis and a ureteral stent is in place. Colonic diverticulosis noted. Status post cholecystectomy and hysterectomy noted. ASSESSMENT: 1. Severe peripheral vascular disease, status post left below the knee amputation. 2. Occlusion of abdominal aorta below the renal arteries. 3. History of axillobifemoral bypass with thrombosed graft. 4. Chronic sinus tract, right groin, possibly infected groins, now infected colonized with methicillin-resistant Staphylococcus aureus. [facility] [address] [place] [address] CONSULTATION Name: TIFFANIE TIMMONS Room #: 217-P ADM IN M.R.#: [id number] Admission: 05/17/18 ������������������ Attend Phys: Chester Meza MD, FAAF Discharge: ������������������ Date of : 53 Report #: [id number] 5. Right hydronephrosis, ureteral stent, and funguria. 6. Diabetes mellitus. 7. Acute kidney injury. SUGGESTIONS: Recommend discontinue Rocephin. Continue doxycycline, which is possibly a drug of choice for a patient with chronic kidney disease and MRSA sensitive to tetracycline. We will continue Diflucan for a few days. May consider exchange of stent if this is deemed necessary. Dr. Meza and Dr. Luque, thank you for requesting my suggestions. ��������������������������������������������� <ELECTRONICALLY SIGNED> ���������������������������������������� By: Ian Elkins MD ��������������������������������������������� 05/25/18 0941 0738 0937 Ian Elkins MD /nt
[2018-05-25 11:29] VITALS: BP 150/70
[2018-05-25 15:37] VITALS: BP 170/53
[2018-05-25 19:07] VITALS: BP 159/68
--- NOTE | 2018-05-25 19:58 | NUR ---
ASSUMED CARE OF PT AT SHIFT CHANGE. ASSESSMENTS CHARTED. MEDS GIVEN PER MAY. PT ALERT AND ORIENTED, VSS, BP ELEVATED THIS AM, PROVIDER AWARE, ORDERS RECEIVED/IMPLEMENTED. O2 SATS WNL ON ROOM AIR, C/O PAIN- MANAGED WITH PO PAIN MEDS. PT REQUESTED PRN BREATHING TX THIS SHIFT, GIVEN BY RT. C/O NAUSEA THIS SHIFT, ZOFRAN ADMINISTERED. RELIEF OBTAINED. DENIES CHEST PAIN, NO S/SX OF CARDIAC OR RESP DISTRESS NOTED. DENIES CONCERNS AT THIS TIME. WILL CONTINUE TO MONINTOR AND FOLLOW POC.
[2018-05-26 03:14] VITALS: BP 147/75
--- NOTE | 2018-05-26 03:29 | NUR ---
ASSUMED CARE 1900. VSS. ASSESSMENT CHARTED. PT LE PAIN CONTROLED WITH SCHEDULED AND PRN PAIN MEDS PER EMAR. PT DENIES CP, SOA, OR ANY OTHER CONCERNS. SR -SB ON MONITOR ASYPMTOMATIC. ISO MAINTAINED. WILL CONTINUE TO MONITOR AND WITH POC.
[2018-05-26 08:00] VITALS: BP 157/71
[2018-05-26 11:53] VITALS: BP 159/68
--- NOTE | 2018-05-26 12:42 | NUR ---
Follow up: pt reports eating better than was past few days. No questions regarding diet. Hoping to leave soon. Remains low nutrition risk
--- NOTE | 2018-05-26 13:46 | NUR ---
Dr Elkins agreeable for dc to home wants patient to continue on doxycycline 100 mg po bid for many months. Relayed to RN and Dr Meza.
[2018-05-26 16:00] VITALS: BP 173/71
--- NOTE | 2018-05-26 18:42 | NUR ---
ASSUMED CARE OF PT AT SHIFT CHANGE. ASSESSMENTS CHARTED. MEDS GIVEN PER MAY. PT ALERT AND ORIENTED. VSS, C/O BLE PAIN MANAGED WITH PO PAIN MEDS. O2 SATS WNL ON ROOM AIR, PT DENIED NEED FOR BREATHING TREATMENT. NO S/SX OF CARD OR RESP DISTRESS NOTED. PT HOPEFUL FOR DC IN AM. DENIES CONCERNS AT THIS TIME. WILL CONT TO MONITOR AND FOLLOW POC.
[2018-05-26 20:19] VITALS: BP 165/77
--- NOTE | 2018-05-27 02:23 | NUR ---
AOX4, SB TO SR ON THE MONITOR. COMPLAINT OF CONSTANT BURNING, STABBING PAIN ON BOTH LOWER EXTREMITIES, MANAGED WITH PRN PAIN MEDS. CLEAR LUNG SOUNDS, DIMINISHED ON THE BASES, VOIDS WELL. RIGHT GROIN OPEN FISTULA NOTED, MAINTAINED ON CONTACT PRECAUTION. FALL PRECAUTION IN PLACE. PATIENT REFUSED SCD. LEFT LEG PROSTETICS AT BEDSIDE. IV NSS AT 50 ML/HR INFUSING WELL ON THE LEFT UPPER ARM MIDLINE. FF UP OC.
[2018-05-27 04:39] LABS: CALCIUM 9.6 mg/dL (8.5-10.1); CREATININE 1.3 mg/dL (0.6-1.0); POTASSIUM 4.1 mmol/L (3.5-5.1)
[2018-05-27 05:14] LABS: ABSOLUTE NEUTROPHILS 5.4 thou/uL (1.4-8.2); BASOPHILS 0.2 % (0.0-2.0); EOSINOPHILS 1.4 % (0.0-3.0); HEMATOCRIT 33.8 % (37.0-47.0); HEMOGLOBIN 10.8 gm/dL (12.0-15.0); LYMPHOCYTES 32.9 % (24.0-44.0); MCH 27.1 pg (26.0-34.0); MCHC 31.9 g/dL (28.0-37.0); MCV 84.9 fL (80.0-100.0); MONOCYTES 8.6 % (1.0-8.0); PLATELET COUNT 457 thou/uL (150-400); POLYS 56.9 % (36.0-66.0); RBC 3.98 mil/uL (4.20-5.00); RDW 16.1 % (10.5-14.5); WBC 9.4 thou/uL (4.0-11.0)
[2018-05-27 05:36] VITALS: BP 154/71
[2018-05-27 08:19] VITALS: BP 188/76
[2018-05-27 11:15] VITALS: BP 147/71
[2018-05-27 15:29] VITALS: BP 154/64
[2018-05-27 19:51] VITALS: BP 161/68
--- NOTE | 2018-05-28 01:51 | NUR ---
AOX4, SB TO SR WITN PACS ON THE MONITOR. STILL WITH COMPLAINT OF CONSTANT STABBING, BURNING PAIN ON BOTH LOWE EXTREMITIES, MANAGED WITH PRN PAIN MEDS. MAINTAINED ON CONTACT PRECAUTION FOR THE MRSA ON RIGHT GROIN FISTULA. LEFT NSS AT 50 ML/HR INFUSING ON THE UPPER ARM MIDLINE. FF UP POC.
[2018-05-28 04:38] VITALS: BP 148/82
[2018-05-28 07:29] VITALS: BP 156/68
[2018-05-28 11:05] VITALS: BP 140/67
--- NOTE | 2018-05-28 14:54 | NUR ---
Likely dc home later today. Awaiting rounds by the attending. No cm interventions indicated at this time.
[2018-05-28 15:16] VITALS: BP 149/73
[2018-05-28 20:36] VITALS: BP 153/65
[2018-05-29 03:52] VITALS: BP 147/75
--- NOTE | 2018-05-29 03:56 | NUR ---
ASSESSMENT DOCUMENTED. STILL WITH COMPLAINT OF CONSTANT BURNING STABBING PAIN ON BOTH LOWER EXTREMITIES, MANAGED WITH PRN PAIN MEDS. MAINTAINED ON CONTACT PRECAUTIO. PATIENT LOOKING FORWARD TO DISCHARGE.
--- NOTE | 2018-05-29 08:24 | NUR ---
ASSUMED CARE OF PT AROUND 0715, AMB STEADY W/PROSTHESIS, RSV IN BILAT LEGS, WORSE IN R, ALTHOUGH AMB STEADY WE ARE DESIGNATING FALL RISK, SHE HAS ON BROWN SOCKS D/T AMB STEADY, A&0X4, APPETITE INCREASING. ENCOURAGED HER TO USE CALL LIGHT FOR ANY NEEDS
--- NOTE | 2018-05-29 08:25 | EKG ---
[address] [place] [place] [address] ELECTROCARDIOGRAM REPORT Name: TIFFANIE TIMMONS Room #: 217-P ADM IN M.R.#: [id number] ������������������ Admission: 05/17/18 ������������������ Attend Phys: Chester [facility] MD, [facility] Discharge: ������������������ Date of : 51 Report #: [id number] ����������������������������������������������������������������� [id number] THIS REPORT FOR: //name// [facility] Test Date: 2018-05-28 Test Time: 17:02:28 Pat Name: TIFFANIE TIMMONS Department: Room: 217 P Gender: F Interactive Designer: Aki HARRIS : 1955 Requested By: Chester Meza Order Number: [id number] MD: Raheem Buckley Measurements Intervals [place] Rate: 71 P: 45 NH: 149 QRS: 34 QRSD: 105 T: -27 QT: 412 QTc: 448 Interpretive Statements Sinus rhythm Nonspecific T wave abnormality Compared to ECG 05/17/2018 16:34:51 T-wave abnormality now present Sinus tachycardia no longer present Right bundle-branch block no longer present Electronically Signed On 05-29-2018 8:25:45 CDT by Raheem Buckley [email or web address] ��������������������������������������������� <ELECTRONICALLY SIGNED> ���������������������������������������� By: Raheem Buckley MD, [facility] ��������������������������������������������� 05/29/18 0825 1702 1702 Raheem Buckley MD, [facility] /EPI
[2018-05-29 08:40] VITALS: BP 164/81
--- NOTE | 2018-05-29 11:48 | NUR ---
PHYSICIAN CALL: CALLED DR. DEL VALLE TO LET HIM KNOW DC MEDS ON THE DISCHARGE IS STILL PENDING. PT HAS SCRIPTS YET THIS NEEDS TO BE ADDRESSED, ANSWERING SERVICE SAID THEY'D HAVE HIM RETURN THE CALL
[2018-05-29 12:22] VITALS: BP 149/57
[2018-05-29 12:33] VITALS: BP 149/57
[2018-05-29] MEDS ORDERED: AMOXICILLIN 50500 MG PO ×2 (13:06)
[2018-05-29] MEDS ORDERED: BYSTOLIC 5 MG5 M1 PO (13:18)
[2018-05-29] MEDS ORDERED: DIFLUCAN200 MG PO (13:19)
[2018-05-29] MEDS ORDERED: DOXYCYCLINE 10100 MG PO (13:19)
--- NOTE | 2018-05-29 13:35 | NUR ---
REC ADMIT SAME TIME WAITING FOR PT'S DOC TO FINISH UP D/C, ANOTHER RN HELPED THE PROCESS ALONG. PRINTING OUT MED SHEET INFO AND COPYING RX AND LET FAMILY KNOW THEY'D BE GOOD TO GO IN FIVE MINUTES. IV AND TELE REMOVED. FAMILY WAITING PATIENTLY.
== END 2018-05-29 14:04 | disposition home or self-care (01) | DRG 872 ==
LOC: ER 16:07 → 2N 18:37 → EROBS 18:37 → 2N 23:09
PROVIDERS: Internal Medicine; Physician Assistant; ADMIT Family Medicine
DX: A41.9 Sepsis, unspecified organism (principal); N17.9 Acute kidney failure, unspecified; E87.1 Hypo-osmolality and hyponatremia; N12 Tubulo-interstitial nephritis, not specified as acute or chronic; R65.20 Severe sepsis without septic shock; B37.9 Candidiasis, unspecified; E11.51 Type 2 diabetes mellitus with diabetic peripheral angiopathy without gangrene; K21.9 Gastro-esophageal reflux disease without esophagitis; J40 Bronchitis, not specified as acute or chronic; E11.40 Type 2 diabetes mellitus with diabetic neuropathy, unspecified; B95.62 Methicillin resistant Staphylococcus aureus infection as the cause of diseases classified elsewhere; I10 Essential (primary) hypertension; Z16.29 Resistance to other single specified antibiotic; Z90.710 Acquired absence of both cervix and uterus; Z86.14 Personal history of Methicillin resistant Staphylococcus aureus infection; Z87.891 Personal history of nicotine dependence; Z90.5 Acquired absence of kidney; Z89.512 Acquired absence of left leg below knee; Z90.49 Acquired absence of other specified parts of digestive tract; Z86.718 Personal history of other venous thrombosis and embolism; Z85.528 Personal history of other malignant neoplasm of kidney; Z95.820 Peripheral vascular angioplasty status with implants and grafts; Z79.02 Long term (current) use of antithrombotics/antiplatelets; Z79.899 Other long term (current) drug therapy; Z88.8 Allergy status to other drugs, medicaments and biological substances
CPT/HCPCS: 10081; 27000